=== PATIENT | male | born 1955 | race Caucasian/White ===

== ENCOUNTER 2018-09-18 17:19 | Inpatient (IN) ==
[2018-09-18] MEDS ORDERED: Sodium Chloride 0.9% 1,000 ML PRIMARY IV ONE (17:41)
--- NOTE | 2018-09-18 18:02 | EKG ---
[address] [place] [address] Measurements Intervals [place] Rate: 90 P: 40 DE: 156 QRS: -55 QRSD: 120 T: 97 QT: 400 QTc: 448 Interpretive Statements SINUS RHYTHM INFERIOR MYOCARDIAL INFARCTION [40+ ms Q WAVE AND/OR ST/T ABNORMALITY IN II/aVF], PROBABLY OLD Compared to ECG 09/10/2018 11:25:46 Sinus tachycardia no longer present Left anterior fascicular block no longer present T-wave abnormality no longer present Possible ischemia no longer present Myocardial infarct finding still present Electronically Signed On 09-19-18 08:38:01 MDT by Rex Carroll MD [email or web address]
[2018-09-18 18:08] LABS: BASOPHILS # (AUTO) 0.04 10*3/UL; BASOPHILS % (AUTO) 0.4 % (0-1); EOSINOPHILS # (AUTO) 0.08 10*3/UL; EOSINOPHILS % (AUTO) 0.9 % (0-8); Hemoglobin [HGB] 14.5 g/dL (14.0-18.0); LYMPHOCYTES # (AUTO) 1.96 10*3/uL; MEAN CORPUSCULAR HEMOGLOBIN 30.5 PG (27-31); MEAN CORPUSCULAR HGB CONC 35.4 g/dL (33-37); MEAN CORPUSCULAR VOLUME 86.3 FL (80-90); MEAN PLATELET VOLUME 9.6 FL (7.4-12.2); MONOCYTES # (AUTO) 0.79 10*3/UL (0.3-0.8); MONOCYTES % (AUTO) 8.5 % (5-15); NEUTROPHILS # (AUTO) 6.44 10*3/UL; RED BLOOD COUNT 4.75 10^6/uL (4.70-6.10)
[2018-09-18 18:10] LABS: PLATELET MORPHOLOGY COMMENT NORMAL MORPHOLOGY (NORM); RBC MORPHOLOGY COMMENT NORMAL MORPHOLOGY (NORM); WBC MORPHOLOGY COMMENT NORMAL MORPHOLOGY (NORM)
[2018-09-18 18:22] LABS: BLOOD UREA NITROGEN 18 mg/dL (7-22); BUN/CREATININE RATIO 25.71 (6-20); SERUM ALBUMIN 3.2 g/dL (3.5-4.8)
[2018-09-18] MEDS ORDERED: ONDANSETRON 4 MG/2 ML VIAL IVP ONE (18:37)
[2018-09-18] MEDS ORDERED: fentaNYL Inj 100 MCG/2 ML VIAL IVP ONE (18:37)
--- NOTE | 2018-09-18 20:02 | PDOC ---
General Adult HPI - General Chief Complaint: Abdomen Pain Stated Complaint: abdominal pain Date Seen by Provider: 09/18/18 Time Seen by Provider: 17:25 Source: POSITIVE: Patient Exam Limitations: POSITIVE: No limitations Nurse's Notes Reviewed & Considered: Yes - History of Present Illness Initial Comment: The patient is a 63-year-old male who presents to the emergency department with complaints of continued abdominal pain and "graying out". At the end of July the patient had presented to the emergency department here with anasarca and new ascites. He also had what appeared to be metastatic lesions to the omentum and hypodensities in the liver and the lesion in the left lung. He had been transferred to [facility] for treatment of congestive heart failure and new onset ascites. He did undergo paracentesis which showed no evidence of infection and the cytology was negative. He had been discharged home on multiple medications which the patient had subsequently discontinued because he felt like they were making him sick. He return to the emergency department last week with increasing abdominal pain and distention. His ascites had returned although the edema in his legs was markedly improved. He was transferred back to [facility] after discussion with the surgeon there in the hospitalist with the plan of doing a therapeutic paracentesis and some type of radiology guided biopsy for definitive diagnosis. The patient is a poor historian however it sounds like he may have gotten placed on an involuntary hold possibly for depression or suicidal ideation although this is unclear. It sounds like he did not have a biopsy however he did have another repeat paracentesis. The patient states that he has continued abdominal pain. He states that it is very difficult for him to eat or drink anything because of increased pain when he does. He also starts vomiting if he eats too much. He has subjective chills however denies fever at home. He states that he has been urinating about once a day and his urine is very dark. He states that this afternoon he was looking outside in his vision became very cuenca and the TV noise became very dull and he felt like he was "graying out". He was worried that if he went to sleep that he would not wake back up so his dad brought him here for further evaluation. Have you received a tetanus shot in the past 10 years?: Yes - Patient Home Medications Home Medications: Home Medications Potassium Chloride 10 meq PO BID #20 tab 08/19/18 Atorvastatin Calcium 40 mg PO BEDTIME 09/10/18 Insulin Detemir [Levemir Flextouch] 8 unit SUBCUT BEDTIME 09/10/18 Lisinopril 2.5 mg PO DAILY 09/10/18 Metformin HCl 1,000 mg PO BID 09/10/18 Metoprolol Tartrate 12.5 mg PO DAILY 09/10/18 - Patient Allergies Allergies/Adverse Reactions: Allergies 3 Allergy/AdvReac Type Severity Reaction Status Date / Time No Known Allergies Allergy Verified 09/18/18 17:23 Past Medical History - heen HEENT History: Denies History Cardiovascular History: Hypertension, CHF, Previous MT, Other (please comment) Additional Cardiovasular History: ANASARCA Respiratory History: Denies History Gastrointestinal History: Other (please comment) Additional Gastrointestinal History: ASCITES, CURRENTLY BEING TESTED FOR DIAGNOSIS TO CAUSE OF ASCITES. POSSIBLE METASTATIC DISEASE. Genitourinary History: Denies History Endocrine History: Type 2 Diabetes (oral), Type 2 Diabetes (insulin) Musculoskeletal History: Denies History Prosthesis or Implant: No Neurological History: Denies History Blood Disorders: Denies History Psychiatric History: Denies History History of Sexually Transmitted Diseases: No Cancer History: Other (please comment) In Past Year Been Physically Harmed or Verbally Threatened: No History of MDRO: No History of Other Communicable Diseases: No Tobacco Use: Current Every Day Smoker In the Past 12 Months, Have Used or Abuse Any Substance: None Previous Surgical History: Yes Type / Date of Surgery: HEART CATH Significant Family History: No pertinent family hx Past Medical History Reviewed: Reviewed - No Changes ROS - Limitations ROS Limitations: No Limitations Constitution: REPORTS: Chills. DENIES: Fever Cardiovascular: DENIES: Chest Pain, Heart Palpitations Respiratory: REPORTS: Shortness Of Breath Neurological: REPORTS: Confusion, Weakness. DENIES: Headache Gastrointestinal: REPORTS: Abdominal Pain (Generalized), Nausea, Vomitting. DENIES: Diarrhea, Bloody Stools Endocrine: REPORTS: Fatigue Musculoskeletal: REPORTS: Denies MS Symptoms Eyes: REPORTS: Denies Symptoms ENT: REPORTS: Denies Symptoms Skin: DENIES: Rash General Adult Exam - General Appearance General Appearance: POSITIVE: Alert, Cooperative, No Acute Distress - HEENT HEENT: POSITIVE: Head Inspection Nml, Eyes Inspection Nml, Ears Inspection Nml, Pharynx Inspect. Nml, Dry Mucous Membranes - Neck Neck: POSITIVE: Normal Inspection. NEGATIVE: Lymphadenopathy - Respiratory Respiratory: POSITIVE: No Respiratory Distress, Breath Sounds Normal - Cardiovascular Cardiovascular: POSITIVE: Regular Rate & Rhythm, No Murmur Peripheral Pulses: Dorsalis-pedis (R): 2+, Dorsalis-pedis (L): 2+ - Abdomen Additional Abdominal Details: His abdomen is distended although not quite as distended as it was last week with ascites, he does have generalized abdominal tenderness without guarding or rebound tenderness, he still has a bandage in the right lower abdomen presumably from most recent paracentesis. - Skin Skin: POSITIVE: Normal Color, No Rash - Extremities Extremity: Normal ROM: (All Extremities), Normal Inspection: (All Extremities) - Neurological / Psychological Neurological: POSITIVE: Oriented X3, Motor Normal, Sensation Normal, Other (No focal neurologic deficits the patient's thought processes her sometimes tangential and he seems to lose concentration) General Adult Progress - Results Reviewed by me Xrays/CTs/US Reviewed by me: Yes Discussed with Radiologist: Yes Radiology Findings: CT head shows no acute intracranial abnormality per radiologist. Lab Results Reviewed by Me: Yes Lab Results:: Laboratory Results 3 09/18/18 09/18/18 09/18/18 17:41 18:00 18:00 WBC 9.33 RBC 4.75 Hgb 14.5 Hct 41.0 L MCV 86.3 MCH 30.5 MCHC 35.4 RDW Std Deviation 43.0 RDW Coeff of Yaniv 14.0 Plt Count 391 H MPV 9.6 Immature Gran % (Auto) 0.2 Neut % (Auto) 69.0 Lymph % (Auto) 21.0 [place] % (Auto) 8.5 Eos % (Auto) 0.9 Baso % (Auto) 0.4 Immature Gran # (Auto) 0.02 Neut # (Auto) 6.44 Lymph # (Auto) 1.96 [place] # (Auto) 0.79 Eos # (Auto) 0.08 Baso # (Auto) 0.04 WBC Morphology Comment Normal morphology Plt Morphology Comment Normal morphology RBC Morph Comment Normal morphology PT 10.8 INR 1.05 Sodium Potassium Chloride Carbon Dioxide Anion Gap BUN Creatinine Estimated GFR BUN/Creatinine Ratio Glucose Calculated Osmolality Lactic Acid Calcium Magnesium Total Bilirubin AST ALT Alkaline Phosphatase Lactate Dehydrogenase 1178 H Troponin I C-Reactive Protein NT-Pro-B Natriuret Pep Total Protein Albumin Globulin Albumin/Globulin Ratio Lipase Acetaminophen Serum Alcohol 3 09/18/18 09/18/18 09/18/18 18:00 18:00 18:00 WBC RBC Hgb Hct MCV MCH MCHC RDW Std Deviation RDW Coeff of Yaniv Plt Count MPV Immature Gran % (Auto) Neut % (Auto) Lymph % (Auto) [place] % (Auto) Eos % (Auto) Baso % (Auto) Immature Gran # (Auto) Neut # (Auto) Lymph # (Auto) [place] # (Auto) Eos # (Auto) Baso # (Auto) WBC Morphology Comment Plt Morphology Comment RBC Morph Comment PT INR Sodium 129 L Potassium 4.8 Chloride 99 Carbon Dioxide 22 L Anion Gap 8 BUN 18 Creatinine 0.7 Estimated GFR > 60 BUN/Creatinine Ratio 25.71 H Glucose 176 H Calculated Osmolality 273.0 Lactic Acid 2.8 H Calcium 8.5 L Magnesium 1.6 Total Bilirubin 0.5 AST 49 ALT 51 Alkaline Phosphatase 256 H Lactate Dehydrogenase Troponin I 0.014 C-Reactive Protein 7.7 H NT-Pro-B Natriuret Pep Total Protein 6.1 Albumin 3.2 L Globulin 2.9 Albumin/Globulin Ratio 1.10 L Lipase Acetaminophen 25 Serum Alcohol < 10 3 09/18/18 09/18/18 18:00 18:00 WBC RBC Hgb Hct MCV MCH MCHC RDW Std Deviation RDW Coeff of Yaniv Plt Count MPV Immature Gran % (Auto) Neut % (Auto) Lymph % (Auto) [place] % (Auto) Eos % (Auto) Baso % (Auto) Immature Gran # (Auto) Neut # (Auto) Lymph # (Auto) [place] # (Auto) Eos # (Auto) Baso # (Auto) WBC Morphology Comment Plt Morphology Comment RBC Morph Comment PT INR Sodium Potassium Chloride Carbon Dioxide Anion Gap BUN Creatinine Estimated GFR BUN/Creatinine Ratio Glucose Calculated Osmolality Lactic Acid Calcium Magnesium Total Bilirubin AST ALT Alkaline Phosphatase Lactate Dehydrogenase Troponin I C-Reactive Protein NT-Pro-B Natriuret Pep 6400 H Total Protein Albumin Globulin Albumin/Globulin Ratio Lipase 142 Acetaminophen Serum Alcohol CBC and BMP: 09/18/18 18:00 09/18/18 18:00 EKG Interpreted/Reviewed By Me:: Yes EKG Interpretation:: POSITIVE: Normal Sinus Rhythm, Normal Rate, Normal QRS, Normal ST/T, Other (No acute changes when compared to previous) - Patient's Progress MDM / ED Course: On arrival to the emergency department the patient was hypotensive with a blood pressure in the 70s to 80s systolic. An IV was established and blood cultures and lactate were drawn. His lactate was mildly elevated at 2.5. He did receive a 1 L bolus of normal saline as he appeared to be clinically dehydrated. His blood pressures improved into the 90s systolic. His white count is normal and his CRP is 7.7 which is in the range that it has been for the past couple of weeks. His sodium is low at 129 and this was normal last week. The remainder of his blood work is essentially unremarkable with normal troponin. His BNP is 6000 which is in the range that it has been running. Records were requested from [facility]. Findings were discussed with the patient. The patient will be admitted for further care per Dr. Wagoner. The patient is agreement with this plan. The patient will be given a dose of Rocephin 2 g IV secondary to possible as SBP. - Consult Counseled: POSITIVE: Patient, RE: Lab Results, RE: Radiology Results, RE: DX Patient Care Time - Estimated PCT Patient Care Time (In Minutes): 50 Vital Signs - Recent Vital Signs Vital Signs: Vital Signs (Last 8 hours) Temp Pulse Resp BP Pulse Ox 09/18/18 17:20 96.8 F 94 21 87/70 97 - VS Reviewed Vital Signs Reviewed: Yes Discharge Clinical Impression: Hypotension, Syncope, near, Ascites, Dehydration, Altered mental status, Hyponatremia Abdominal pain Qualifiers: Abdominal location: generalized Qualified Code(s): R10.84 - Generalized abdominal pain Discharge Disposition: Admit to Inpatient Condition: Fair Date Decision to Admit to Inpatient: 09/18/18 Time Decision to Admit to Inpatient: 20:45
--- NOTE | 2018-09-18 20:46 | DI ---
EXAM: CT Head Without Intravenous Contrast CLINICAL HISTORY: ITS.REASON confusion Physician Notes: Tech Comments: TECHNIQUE: Axial computed tomography images of the head/brain without intravenous contrast. COMPARISON: 12/21/06 report. Images not available. FINDINGS: Brain: No evidence for acute intracranial hemorrhage, edema, or mass effect. Patchy white matter hypodensities are present bilaterally, likely related to chronic small vessel ischemia. Age related cortical involutional changes are present. Ventricles: Unremarkable. No ventriculomegaly. Bones/joints: Unremarkable. No acute fracture. Soft tissues: Atherosclerosis. Sinuses: Unremarkable as visualized. No acute sinusitis. Mastoid air cells: Mild right mastoid effusion. IMPRESSION: 1. No acute intracranial findings. Chronic changes are noted as above. 2. Small right mastoid effusion.
[2018-09-18] MEDS ORDERED: cefTRIAXone Inj 2 GM in Sodium Chloride 0.9% 100 ML IV ONE (20:51)
--- NOTE | 2018-09-18 21:33 | PDOC ---
HPI - History of Present Illness Date of Service: 09/18/18 Time of Service: 23:24 Chief Complaint: Abdominal pain History of Present Illness: This very pleasant 63-year-old male who is a somewhat vague historian, but with extremely careful questioning provides a history that he has had abdominal pain which is been persistent, dull, and worsening since a recent paracentesis done in [place]. He states he was not given pain medications at that time, and that he called the clinic but he was told that no pain prescriptions will be given and he should be evaluated in the emergency room. He denied fevers with the abdominal pain but he does complain of chills. He states that he has had some nausea and vomiting this then persistent with this as well. I reviewed the workup done in [place] reveals that he has underlying ascites, no evidence of malignancy by cytology, but he has underlying congestive heart failure as well. Although liver was nodular on CT scan it was normal-appearing on ultrasound. No liver biopsy was done at the time. I'm told apparently a biopsy is planned. The patient cannot give any details of that however. He does state that the pain is diffuse and throughout the entire abdomen. He denies any changes in bowel habits or any blood in stool. He states he's mostly been trying distraction therapy by watching movies and that has not really helped his pain at all. Fentanyl in the emergency room did help him. Examination revealed a positive ascitic fluid wave although his ascites was not at a tense level. He was agreeable to doing a paracentesis for further evaluation. The patient was found to have very depressed ejection fraction at 35%, but further cardiac evaluation was delayed until congestive heart failure was under better control. He has known coronary artery disease but on my review of the record, he's had an attempt at stent placement that failed with a prior myocardial infarction. Past Medical History Medical History: 1. CAD, s/p stent attempt in RCA with non q wave ME and intraaortic balloon pump. 2. poorly controlled DMII. 3. hypercholesterolemia. 4. tobacco abuse. 5. remote history of alcohol abuse. 6. medical noncompliance. 7. Ascites of unclear etiology Surgical History: Outside of recent paracentesis in [place], no surgeries. Pertinent Family History: He states his mother of Alzheimer's dementia. His father side of the family had heart disease. Past Social History: Smokes although cannot quantify how much per day. He states that he quit drinking over a year ago he cannot remember if he drank heavily or markedly. He has a daughter that he is estranged from. He lives alone here in [place]. Tobacco Use: Current Every Day Smoker Do you dip or chew tobacco: No In the Past 12 Months, Have Used or Abuse Any of the Following Substance: None Alcohol Use: None Medication / Allergies Home Medications: Home Medications 3 Medication Instructions Recorded Confirmed Type Potassium Chloride 10 meq PO BID #20 tab 08/19/18 09/18/18 Rx Atorvastatin Calcium 40 mg PO BEDTIME 09/10/18 09/18/18 History Insulin Detemir [Levemir Flextouch] 8 unit SUBCUT BEDTIME 09/10/18 09/18/18 History Lisinopril 2.5 mg PO DAILY 09/10/18 09/18/18 History Metformin HCl 1,000 mg PO BID 09/10/18 09/18/18 History Metoprolol Tartrate 12.5 mg PO DAILY 09/10/18 09/18/18 History Allergies/Adverse Reactions: Allergies 3 Allergy/AdvReac Type Severity Reaction Status Date / Time No Known Allergies Allergy Verified 09/18/18 17:23 Review of Systems - Review of Systems All Systems: Reviewed & No Additional Complaints Except as Stated (I did a 12 point review systems and it was negative other than that stated in history present illness and that noted below.) - Constitutional Constitutional: REPORTS: General Health Poor, Weight Loss (He thinks about 20 pounds as he stated that he weighed about 200-207 pounds), Fever / Chills (No fevers but complains of chills), Weakness - Respiratory Respiratory: REPORTS: Cough - Cardiovascular Cardiovascular: REPORTS: Negative System Review - Gastrointestinal Gastrointestinal / Abdominal: REPORTS: Nausea, Vomiting, Abdominal Pain, See HPI - Genitourinary Genitourinary: REPORTS: Negative System Review - Musculoskeletal Musculoskeletal: REPORTS: Negative System Review - Neurological Neurologic: REPORTS: Memory Loss (Stated that he's noticed some increasing difficulties remembering details lately.), Other (States that he had a diagnosis of MS in the 90s but has not been on any medications for that.) - Psychiatric Psychiatric: REPORTS: Negative System Review Exam - Vitals Vital Signs: Vital Signs Temperature 96.8 F Temperature Source Temporal Artery Scan Pulse Rate [Pulse Oximeter] 94 Respiratory Rate 21 Blood Pressure [Left Arm] 87/70 Pulse Ox 97 Oxygen Delivery Method Room Air Height 5 ft 9 in Weight 250 lb - General General Appearance: No Acute Distress, Cooperative - Head Head Exam: Normocephalic, Atraumatic Additional Head Exam Details: Has temporal wasting bilaterally - Eye Eye Exam: POSITIVE: No Scleral Icterus - ENT ENT Exam: POSITIVE: Mucous Membranes Moist - Neck Neck Exam: Normal Inspection, Full ROM, No Tenderness, No Lymphadenopathy, No Thyromegaly, JVP is not Raised - Respiratory Respiratory Exam: POSITIVE: Clear to Auscultation - Bilaterally, Breathing Non Labored, Normal to Percussion and Palpation - Cardiovascular Cardiovascular Exam: POSITIVE: RRR, No Murmur, No Clicks, No Gallops, No Rubs, No JVD - GI/Abdominal GI/Abdominal Exam: POSITIVE: Normal Bowel Sounds, Non Tender, Soft, Positive for Ascites - Rectal Rectal Exam: POSITIVE: Deferred - External Exam: POSITIVE: Deferred Exam: POSITIVE: Deferred - Extremities Extremities Exam: POSITIVE: No Clubbing Present, No Edema Present, No Cyanosis Present - Back Back Exam: POSITIVE: No CVA Tenderness - Neurological Neurological Exam: POSITIVE: Alert, Oriented x 3, No Facial Droop, Speech Intact / Clear, Moves All Extremities Equally - Psychiatric Psychiatric Exam: POSITIVE: Normal Affect, Normal Mood - Integumentary Integumentary Exam: POSITIVE: Dry - Central Line Examination Central Line Present on Admission: No Results - Labs CBC and BMP: 09/18/18 18:00 09/18/18 18:00 Additional Lab Results: Laboratory Results 09/18/18 09/18/18 09/18/18 Range/Units 18:00 18:00 18:00 WBC 9.33 (4.8-10.8) 10^3/uL RBC 4.75 (4.70-6.10) 10^6/uL Hgb 14.5 (14.0-18.0) g/dL Hct 41.0 L (42.0-52.0) % MCV 86.3 (80-90) FL MCH 30.5 (27-31) PG MCHC 35.4 (33-37) g/dL RDW Std Deviation 43.0 (39-50) fL RDW Coeff of Yaniv 14.0 (11.5-14.5) % Plt Count 391 H (140-350) 10*3/uL MPV 9.6 (7.4-12.2) FL Immature Gran % (Auto) 0.2 (0-5) % Neut % (Auto) 69.0 (50-80) % Lymph % (Auto) 21.0 (10-50) % King % (Auto) 8.5 (5-15) % Eos % (Auto) 0.9 (0-8) % Baso % (Auto) 0.4 (0-1) % Immature Gran # (Auto) 0.02 10*3/UL Neut # (Auto) 6.44 10*3/UL Lymph # (Auto) 1.96 10*3/uL King # (Auto) 0.79 (0.3-0.8) 10*3/UL Eos # (Auto) 0.08 10*3/UL Baso # (Auto) 0.04 10*3/UL WBC Morphology Comment Normal morphology (NORM) Plt Morphology Comment Normal morphology (NORM) RBC Morph Comment Normal morphology (NORM) PT 10.8 (9.7-11.4) secs INR 1.05 (0.00-5.90) N/A Sodium 129 L (135-145) meq/L Potassium 4.8 (3.8-5.2) meq/L Chloride 99 (98-112) meq/L Carbon Dioxide 22 L (23-33) meq/L Anion Gap 8 (5-20) BUN 18 (7-22) mg/dL Creatinine 0.7 (0.70-1.50) mg/dL Estimated GFR > 60 (>60 ml/min/1.73m(2)) BUN/Creatinine Ratio 25.71 H (6-20) Glucose 176 H (78-110) mg/dL Calculated Osmolality 273.0 (267-292) mOsm/kg Lactic Acid (0.70-2.10) MMOL/L Calcium 8.5 L (8.7-10.7) mg/dL Magnesium 1.6 (1.6-2.4) mg/dL Total Bilirubin 0.5 (0.3-1.2) mg/dL AST 49 (21-57) IU/L ALT 51 (21-72) IU/L Alkaline Phosphatase 256 H (38-126) IU/L Troponin I (< 0.040) ng/mL C-Reactive Protein 7.7 H (0.0-0.9) mg/dL NT-Pro-B Natriuret Pep (0-125) PG/ML Total Protein 6.1 (6.1-8.0) g/dL Albumin 3.2 L (3.5-4.8) g/dL Globulin 2.9 (2.50-4.10) g/dL Albumin/Globulin Ratio 1.10 L (1.3-2.0) mg/g Acetaminophen 25 (0-30) ug/mL Serum Alcohol < 10 (0-10) mg/dL 09/18/18 09/18/18 09/18/18 Range/Units 18:00 18:00 18:00 WBC (4.8-10.8) 10^3/uL RBC (4.70-6.10) 10^6/uL Hgb (14.0-18.0) g/dL Hct (42.0-52.0) % MCV (80-90) FL MCH (27-31) PG MCHC (33-37) g/dL RDW Std Deviation (39-50) fL RDW Coeff of Yaniv (11.5-14.5) % Plt Count (140-350) 10*3/uL MPV (7.4-12.2) FL Immature Gran % (Auto) (0-5) % Neut % (Auto) (50-80) % Lymph % (Auto) (10-50) % King % (Auto) (5-15) % Eos % (Auto) (0-8) % Baso % (Auto) (0-1) % Immature Gran # (Auto) 10*3/UL Neut # (Auto) 10*3/UL Lymph # (Auto) 10*3/uL King # (Auto) (0.3-0.8) 10*3/UL Eos # (Auto) 10*3/UL Baso # (Auto) 10*3/UL WBC Morphology Comment (NORM) Plt Morphology Comment (NORM) RBC Morph Comment (NORM) PT (9.7-11.4) secs INR (0.00-5.90) N/A Sodium (135-145) meq/L Potassium (3.8-5.2) meq/L Chloride (98-112) meq/L Carbon Dioxide (23-33) meq/L Anion Gap (5-20) BUN (7-22) mg/dL Creatinine (0.70-1.50) mg/dL Estimated GFR (>60 ml/min/1.73m(2)) BUN/Creatinine Ratio (6-20) Glucose (78-110) mg/dL Calculated Osmolality (267-292) mOsm/kg Lactic Acid 2.8 H (0.70-2.10) MMOL/L Calcium (8.7-10.7) mg/dL Magnesium (1.6-2.4) mg/dL Total Bilirubin (0.3-1.2) mg/dL AST (21-57) IU/L ALT (21-72) IU/L Alkaline Phosphatase (38-126) IU/L Troponin I 0.014 (< 0.040) ng/mL C-Reactive Protein (0.0-0.9) mg/dL NT-Pro-B Natriuret Pep 6400 H (0-125) PG/ML Total Protein (6.1-8.0) g/dL Albumin (3.5-4.8) g/dL Globulin (2.50-4.10) g/dL Albumin/Globulin Ratio (1.3-2.0) mg/g Acetaminophen (0-30) ug/mL Serum Alcohol (0-10) mg/dL - EKG Data -: EKG Interpreted by Me Rate: Normal EKG Shows Normal: Sinus Rhythm - EKG Data EKG Interpretation: Other (flattened T wave inversions in precordial leads) - Imaging Status: Image Reviewed by Me (I don't see any evidence of acute bleed on my review the CT scan of the head.) Assessment and Plan - Patient Problems (1) Spontaneous bacterial peritonitis Current Visit: Yes Status: Acute Code(s): K65.2 - Spontaneous bacterial peritonitis (2) Ascites Current Visit: Yes Status: Acute Code(s): R18.8 - Other ascites (3) Abdominal pain Current Visit: Yes Status: Acute Code(s): R10.9 - Unspecified abdominal pain Qualifiers: Abdominal location: generalized Qualified Code(s): R10.84 - Generalized abdominal pain (4) Chronic systolic heart failure Current Visit: Yes Status: Acute Code(s): I50.22 - Chronic systolic ( congestive) heart failure (5) Poorly controlled type 2 diabetes mellitus Current Visit: Yes Status: Acute Code(s): E11.65 - Type 2 diabetes mellitus with hyperglycemia (6) Tobacco abuse Current Visit: Yes Status: Acute Code(s): Z72.0 - Tobacco use (7) Coronary artery disease Current Visit: No Status: Chronic Code(s): I25.10 - Atherosclerotic heart disease of [place] coronary artery without angina pectoris Qualifiers: Coronary Disease-Associated Artery/Lesion type: [place] artery [place] vs. transplanted heart: [place] heart Associated angina: without angina Qualified Code(s): I25.10 - Atherosclerotic heart disease of [place] coronary artery without angina pectoris - Assessment / Plan Additional Assessment/Plan Details: Admit the patient. Paracentesis, both diagnostic and possibly therapeutic, to make sure that we are doing a workup for spontaneous bacterial peritonitis and also send cells for cytology again. Pain medications Antibiotics as I do think the patient has been examined history that could strongly suggest spontaneous bacterial peritonitis. We need to work through and determine whether or not we should consider doing a liver biopsy and/or some sort of omental biopsy as this patient could very well have malignant ascites. After reviewing the medical records from [place], does not appear that his ascites was necessarily related to portal hypertension. We will repeat the serum ascites to fluid ascites gradient to help determine that. That may help guide some workup. May consider MRI scan as patient has had intermittently develop some memory difficulties. His ammonia recently was normal although ammonia levels do not always correlate with symptoms of hepatic encephalopathy. Check labs in a.m. Full code. I discussed above plan with the patient. He agreed to proceed but he did caution that he really needs things explained to him and to not be told what to do. I told him I would try to do my best to properly consented for any procedure. We did so for paracentesis and that procedure is done separately and uniquely from this visit.
[2018-09-18] MEDS ORDERED: CALCIUM CARBONATE 500 MG (TUMS) CHEWABLE TABLET PO PRN (21:34)
[2018-09-18] MEDS ORDERED: ACETAMINOPHEN 325 MG TABLET PO PRN (21:34)
[2018-09-18] MEDS ORDERED: HYDROmorphone 2 MG/1 ML IVP PRN (21:34)
[2018-09-18] MEDS ORDERED: LIDOCAINE W/ SODIUM BICARB 0.5 ML SYR SUBD PRN (21:34)
[2018-09-18] MEDS ORDERED: ONDANSETRON 4 MG/2 ML VIAL IVP PRN (21:34)
[2018-09-18] MEDS ORDERED: DOCUSATE 100 MG CAPSULE PO PRN (21:34)
[2018-09-18] MEDS ORDERED: LIDOCAINE 2% 20 MG/ML - 20 ML VIAL ONE (22:43)
[2018-09-18] MEDS ORDERED: LIDOCAINE HCL/PF 1% (10 MG/1 ML) - 2 ML AMP ONE (22:43)
[2018-09-18] MEDS ORDERED: LIDOCAINE 2% 20 MG/ML - 20 ML VIAL SUBCUT ONE (23:21)
[2018-09-18] MEDS ORDERED: Albumin Human Soln 25% 50 GM/200 ML IV.SOLN IV ONE (23:32)
--- NOTE | 2018-09-18 23:45 | PROCEDURE1 ---
Procedure - - Date and Time of Service: 09/18/2018, 11:40 PM Procedure Performed: Paracentesis : With Imaging Procedure Note: Procedure performed: Paracentesis Consent was obtained from the patient. Indication for procedure was the following: Indication for procedure: Ascites of undetermined etiology, diffuse abdominal pain, recent paracentesis, question spontaneous bacterial peritonitis and need to rule out out. Description of procedure: The patient was prepped and draped in the usual fashion after ultrasound guidance helped us isolate the largest ascites pocket we could find. In this case it was located at left abdominal flank region. Chlorhexidine was used to cleanse the skin. Lidocaine was used for local anesthesia. A #10 blade was then used perform a small dermatotomy. A 18-gauge needle was inserted with a 60 mL syringe, using a Z-line approach with a 60 mL syringe attached. When withdrawing on the 60 mL syringe, peritoneal fluid was noted and 60 mL was drawn and collected for lab. I tried to use a catheter for drainage but the catheter continually kinked and did not work. I used the 18-gauge needle attached to drainage hose tubing and placed on Vacutainer bottles. A total of 2850 mL of fluid was removed. I had also sent down fluid and a red top, green top, and purple top further laboratory analysis. The fluid appeared yellow and cloudy on my view. A total of 2850 mL was withdrawn via Vacutainer bottles. The needle was then withdrawn. I watched frequently reassessed with ultrasound. There was no evidence of any damage to the bowel or surrounding structures. Hemostasis was achieved. The insertion site was dressed with gauze and Tegaderm, with no evidence of peritoneal leak or blood loss. Anesthesia: Local with lidocaine. Estimated blood loss: None Disposition: Patient is admitted to the hospital in serious condition. Complications: None apparent at time of procedure.
[2018-09-18] MEDS ORDERED: Magnesium Sulfate 2gm (Premix) 2 GM/50 ML BAG IV ONE (23:46)
[2018-09-18] MEDS ORDERED: Glucagon Inj Vial 1 MG/ML VIAL IM PRN (23:47)
[2018-09-18] MEDS ORDERED: DEXTROSE 31 GM GEL PO PRN (23:47)
[2018-09-18] MEDS ORDERED: DEXTROSE 50%-WATER SYRINGE 50 ML SYRINGE IVP PRN (23:47)
[2018-09-18] MEDS ORDERED: Insulin Sliding Scale Protocol SUBCUT PRN (23:47)
[2018-09-18 23:59] LABS: WBC, BODY FLUID 1.299 10*3/uL
[2018-09-19 04:34] LABS: BASOPHILS # (AUTO) 0.05 10*3/UL; BASOPHILS % (AUTO) 0.6 % (0-1); EOSINOPHILS # (AUTO) 0.11 10*3/UL; EOSINOPHILS % (AUTO) 1.4 % (0-8); Hematocrit [HCT] 38.3 % (42.0-52.0); Hemoglobin [HGB] 12.8 g/dL (14.0-18.0); LYMPHOCYTES # (AUTO) 1.28 10*3/uL; MEAN CORPUSCULAR HGB CONC 33.4 g/dL (33-37); MEAN CORPUSCULAR VOLUME 86.7 FL (80-90); MEAN PLATELET VOLUME 9.9 FL (7.4-12.2); MONOCYTES # (AUTO) 0.75 10*3/UL (0.3-0.8); MONOCYTES % (AUTO) 9.7 % (5-15); NEUTROPHILS # (AUTO) 5.55 10*3/UL; NEUTROPHILS % (AUTO) 71.7 % (50-80); RED BLOOD COUNT 4.42 10^6/uL (4.70-6.10)
[2018-09-19 04:37] LABS: PLATELET MORPHOLOGY COMMENT NORMAL MORPHOLOGY (NORM); RBC MORPHOLOGY COMMENT NORMAL MORPHOLOGY (NORM); WBC MORPHOLOGY COMMENT NORMAL MORPHOLOGY (NORM)
[2018-09-19 05:02] LABS: BLOOD UREA NITROGEN 19 mg/dL (7-22); BUN/CREATININE RATIO 31.66 (6-20); SERUM ALBUMIN 3.2 g/dL (3.5-4.8)
[2018-09-19] MEDS: Insulin Lispro Flexpen 300 UNIT/3 ML INSULN.PEN SUBCUT SCH ×4 (07:41→20:57)
[2018-09-19] MEDS: Metoprolol TARTRATE Tab 25 MG TAB PO SCH (08:52)
[2018-09-19] MEDS: oxyCODONE IR Tab 5 MG TAB PO PRN ×3 (08:54→23:28)
[2018-09-19] MEDS ORDERED: LISINOPRIL 5 MG TABLET PO SCH (09:00)
--- NOTE | 2018-09-19 10:25 | DI ---
CT Chest WO Contrast 09/19/2018 8:00 AM History: [facility] [place] DI ^lung nodule, smoker ^Y Comparison: CTA chest 05/11/2009. CT abdomen/pelvis 09/10/2018. Technique: Noncontrast CT images through the chest were obtained for review in the axial, sagittal, and coronal planes. Findings: Evaluation of the lungs demonstrates tiny bilateral pleural effusions and bibasilar atelect asis. Rounded masslike density is noted in the anterior aspect of the lingula, the imaged portion not significantly changed from the recent CT abdomen/pelvis. A 4 mm pulmonary nodule is noted in the rig ht upper lobe on series 2 image 26. A 5 mm subpleural nodule is noted in the right middle lobe on ser ies 2 image 66. Calcified granulomata are noted in the left lower lobe. The airways are patent with no endobronchial lesion. There are shotty mediastinal lymph nodes, not pa thologically enlarged by CT size criteria. The aorta demonstrates normal course and caliber. The main pulmonary artery is dilated at 3.2 cm. There are atheromatous aortic and coronary artery calcificati ons. Aortic annular calcifications are also noted. Heart size is enlarged with no pericardial effusio n. The thyroid exhibits normal CT morphology. Osseous structures are unremarkable for age. The visualized upper abdominal structures are notable for a shrunken nodular appearance of the liver, most commonly associated with cirrhosis although diffuse metastatic disease can have a similar appea keyon. High attenuation material is noted in the gallbladder neck. The gallbladder is incompletely ca ptured on this exam. There is moderate diffuse ascites. Innumerable nodularities are present in the o mentum, concerning for omental caking. Impression: 1. There are tiny bilateral pleural effusions and bibasilar atelectasis. Lung volumes are low and the re is rounded masslike density in the anterior aspect of the lingula. This is favored to represent ro und atelectasis, although other etiologies are not excluded. There are also right upper and middle lo be nodules. Short-term followup is recommended in order to ensure stability/resolution. 2. There is cardiomegaly without pericardial effusion. 3. The main pulmonary artery is dilated at 3.2 cm, a finding associated with pulmonary artery hyperte nsion. 4. The appearance of the liver and omentum is similar to recent imaging. Differential considerations are unchanged.
--- NOTE | 2018-09-19 13:27 | PDOC(PROG) ---
Date of Service: 09/19/18 Time of Service: 13:25 Interval History: No complaints of chest pain, shortness breath, nausea or vomiting. Abdominal pain is much better with pain medications and post catheter yesterday. Labs reviewed and polymorphonuclear cells were PMNs, where 290 which is consistent with spontaneous bacterial peritonitis. I spoke with radiology regarding omental caking and there is nothing to biopsy and if omentum was going to be biopsied it was suggested this would need to be done at another facility. Objective : Data - Labs CBC and BMP: 09/19/18 04:10 09/19/18 04:10 Additional Lab Results: 09/18/18 09/19/18 09/19/18 23:05 04:10 04:10 Total Protein 5.9 L Albumin 3.2 L Globulin 2.7 Albumin/Globulin Ratio 1.10 L PSA Screen 0.839 TSH 0.991 Free T4 1.22 Fluid WBC 1.299 Fluid RBC 0.003 Fluid Polynuclear WBCs 22.4 Fluid Mononuclear WBCs 77.6 Peritoneal Color Yellow Peritoneal Appearance Slightly cloudy Peritoneal Volume 2700 Objective : Exam - General General Appearance: No Acute Distress, Cooperative Additional General Exam Details: Vital Signs - Last Taken Temperature 97.4 F 09/19/18 11:18 Pulse Rate 90 09/19/18 11:18 Respiratory Rate 18 09/19/18 11:18 Blood Pressure 113/80 09/19/18 11:18 Pulse Ox 95 09/19/18 11:18 - Eye Eye Exam: No Scleral Icterus - ENT ENT Exam: Mucous Membranes Moist - Respiratory Respiratory Exam: Clear to Auscultation - Bilaterally, Breathing Non Labored - Cardiovascular Cardiovascular Exam: RRR, No Murmur, No Clicks, No Gallops, No Rubs, No JVD - GI/Abdominal GI/Abdominal Exam: Normal Bowel Sounds, Non Tender, Non Distended, Soft Additional GI/Abdominal Exam Details: Insertion site for paracentesis yesterday looks clean and dry - Extremities Extremities Exam: No Clubbing Present, No Edema Present, No Cyanosis Present - Neurological Neurological Exam: Alert, Oriented x 3, No Facial Droop, Speech Intact / Clear, Moves All Extremities Equally Assessment and Plan - Patient Problems (1) Spontaneous bacterial peritonitis Current Visit: Yes Status: Acute Code(s): K65.2 - Spontaneous bacterial peritonitis (2) Ascites Current Visit: Yes Status: Acute Comment: I suspect this is malignant in nature. We are still waiting for the albumin concentration in the peritoneal fluid to do the SA AG calculations. Code(s): R18.8 - Other ascites Qualifiers: Ascites type: malignant Qualified Code(s): R18.0 - Malignant ascites (3) Abdominal pain Current Visit: Yes Status: Resolved Code(s): R10.9 - Unspecified abdominal pain Qualifiers: Abdominal location: generalized Qualified Code(s): R10.84 - Generalized abdominal pain (4) Chronic systolic heart failure Current Visit: Yes Status: Acute Code(s): I50.22 - Chronic systolic ( congestive) heart failure (5) Poorly controlled type 2 diabetes mellitus Current Visit: Yes Status: Acute Code(s): E11.65 - Type 2 diabetes mellitus with hyperglycemia (6) Tobacco abuse Current Visit: Yes Status: Acute Code(s): Z72.0 - Tobacco use (7) Coronary artery disease Current Visit: No Status: Chronic Code(s): I25.10 - Atherosclerotic heart disease of [place] coronary artery without angina pectoris Qualifiers: Coronary Disease-Associated Artery/Lesion type: [place] artery [place] vs. transplanted heart: [place] heart Associated angina: without angina Qualified Code(s): I25.10 - Atherosclerotic heart disease of [place] coronary artery without angina pectoris - Assessment / Plan Additional Assessment/Plan Details: I'm going to go ahead and continue Rocephin IV given the spontaneous bacterial peritonitis by definition Post-paracentesis we gave the patient albumin. I may repeat a dose tomorrow. We'll extend Rocephin therapy to 7 days and then we'll likely place on either Bactrim or ciprofloxacin empirically daily. He may benefit from a colonoscopy to screen for colon cancer given what appears to be metastatic findings on prior CT scans. No evidence for prostate cancer and reassuring to see a normal PSA. I will go ahead and get a brain MRI scan as patient has had significant cognitive issues. Because of his diabetes I will not use contrast. If all goes well, try to arrange outpatient antibiotics tomorrow but I'd like to see how the patient clinically does the next 24 hours or so. We can probably even schedule a colonoscopy evaluation sometime next week when he is off of antibiotics for the SBP. The patient tells me he has not going to follow up in [place]. He is very adamant this.
--- NOTE | 2018-09-19 16:36 | DI ---
MRI Brain WO Contrast 09/19/2018 1:30 PM History: [facility] [place] DI ^confusion, possible metastatic disease ^diabetic so no contrast Comparison: CT head 09/18/2018. Procedure: Routine noncontrast multiecho multiplanar MR imaging of the brain was performed. Findings: There is no evidence of acute or chronic hemorrhage. No extra-axial fluid collections are p resent. There is no focal mass or mass-effect, although evaluation is limited in the absence of intra venous contrast. The ventricles and cisterns are mildly enlarged, consistent with age related atrophy . The sella is mildly dilated with mild flattening of the pituitary. There is otherwise normal anatom ic appearance of the midline structures. Scattered T2/FLAIR hyperintensities are present within the s ubcortical and periventricular white matter. There is no diffusion restriction. The cerebral vascula ture is grossly normal in appearance. The orbits and paranasal sinuses are unremarkable. There is a m oderate-sized right mastoid effusion. Impression: 1. No MR evidence of acute intracranial pathology within the limits of this noncontrast exam. 2. Scattered T2/FLAIR hyperintensities are present within the subcortical and periventricular white m atter, a nonspecific finding that is most commonly seen in the setting of chronic small vessel ischem ia in this age group. Clinical correlation is recommended. 3. Age related senescent changes. 4. Moderate sized right mastoid effusion.
[2018-09-19] MEDS: cefTRIAXone Inj 2 GM in Sodium Chloride 0.9% 100 ML IV SCH (20:52)
[2018-09-20 01:12] VITALS: TEMP 97.4
[2018-09-20] MEDS: oxyCODONE IR Tab 5 MG TAB PO PRN ×2 (04:55→13:07)
[2018-09-20 05:32] LABS: BASOPHILS # (AUTO) 0.06 10*3/UL; BASOPHILS % (AUTO) 0.7 % (0-1); EOSINOPHILS # (AUTO) 0.14 10*3/UL; EOSINOPHILS % (AUTO) 1.6 % (0-8); Hematocrit [HCT] 42.8 % (42.0-52.0); Hemoglobin [HGB] 14.4 g/dL (14.0-18.0); LYMPHOCYTES # (AUTO) 1.59 10*3/uL; MEAN CORPUSCULAR HEMOGLOBIN 29.3 PG (27-31); MEAN CORPUSCULAR HGB CONC 33.6 g/dL (33-37); MEAN PLATELET VOLUME 9.8 FL (7.4-12.2); MONOCYTES # (AUTO) 0.84 10*3/UL (0.3-0.8); MONOCYTES % (AUTO) 9.5 % (5-15); NEUTROPHILS # (AUTO) 6.16 10*3/UL; NEUTROPHILS % (AUTO) 69.9 % (50-80); RED BLOOD COUNT 4.92 10^6/uL (4.70-6.10)
[2018-09-20 05:44] LABS: PLATELET MORPHOLOGY COMMENT NORMAL MORPHOLOGY (NORM); RBC MORPHOLOGY COMMENT NORMAL MORPHOLOGY (NORM); WBC MORPHOLOGY COMMENT NORMAL MORPHOLOGY (NORM)
[2018-09-20 05:49] LABS: BLOOD UREA NITROGEN 12 mg/dL (7-22); SERUM ALBUMIN 3.1 g/dL (3.5-4.8)
[2018-09-20 08:05] VITALS: BP 121/79; RESP 20; O2SAT 93
[2018-09-20] MEDS: Insulin Lispro Flexpen 300 UNIT/3 ML INSULN.PEN SUBCUT SCH ×2 (08:31→13:28)
[2018-09-20] MEDS: Metoprolol TARTRATE Tab 25 MG TAB PO SCH (09:41)
[2018-09-20 10:59] LABS: HEP B CORE IGM ANTIBODY Negative (Negative); HEPATITIS B SURFACE AG Negative (Negative)
[2018-09-20] MEDS: cefTRIAXone Inj 2 GM in Sodium Chloride 0.9% 100 ML IV SCH (13:01)
--- NOTE | 2018-09-20 13:26 | DCSUMMARY ---
Hospitalization Summary Admit Date: 09/18/2018 Discharge Date: 09/20/18 Primary Diagnosis:: spontaneous bacterial peritonitis Hospital Course: This is a very cantankerous 63-year-old male, somewhat disgruntled with medical care in general, and noncompliant, who came in with increasing abdominal pain on 09/18/2018. The patient had had 2 prior workups for ascites of unclear etiology in [place], where was determined that liver enzymes and INRs were not consistent with cirrhosis, but imaging was. Workup on the ascites fluid in [place] on my review of the medical records that we were able to obtain shows that the serum ascites albumin gradient is consistent with portal hypertension. The patient states that he's had a lot of memory problems and he cannot really quantify his drinking, but on the day of discharge I was able to speak with the patient's father and the patient drinks significant amounts of alcohol and is often noted to be down near [employer] grocery buying alcohol. Imaging has also been consistent with possible low-grade masses in the liver although that can be seen with cirrhosis and also some omental caking. Extensive workup shows possible atelectasis versus a suspicious area in the lingula of the left lobe but no other evidence of masses that would be amenable to biopsy. In terms of potential cancer workup, I spoke with interventional radiology in [place]. It was suggested that there is really no mass to go after an biopsy and perhaps a laparoscopic peritoneal biopsy may be appropriate as cytology is been negative for malignancy on 2 separate occasions. We have arranged the patient to see Dr. Rodriguez on an outpatient basis. I believe the patient may been set up with Dr. Annette Lnig, but the patient refuses to go back there. Terms of his abdominal pain workup here, we found is that he had spontaneous bacterial peritonitis with over 250 PMNs. We were not able to isolate an organism on culture. Post paracentesis, the patient reported to me that his pain had resolved and his abdomen. He was treated with Rocephin here for 3 days and then we made the determination that the best thing to do would be to stop IV antibiotics at that point and place the patient on ciprofloxacin to prophylax against further episodes of spontaneous bacterial peritonitis. I strongly admonished the patient with his father present, to quit drinking alcohol and to quit smoking as this could further deteriorate what appears to be cirrhosis. Pending currently, we have a viral hepatitis panel. In addition the serum albumin ascites gradient is dependent on the peritoneal albumin level to calculate further. I did note, on review of the records in [place], that this is consistent with portal hypertension. Imaging here also included a brain MRI scan. I could not do contrast as the patient has uncontrolled diabetes and the patient is noncompliant with medical regimen. That scan was consistent with microvascular small vessel ischemic disease. A CT scan of the chest was done which showed possible lingular atelectasis with recommendation for reimaging down the road as clinically warranted. On the date of discharge, the patient became very belligerent with the nursing staff, demanding to be discharged. He nearly walked out AGAINST MEDICAL ADVICE. After harsh discussion with the patient, I was able to convince him to at least stay for his IV antibiotic and devise a plan regarding 3 components of his situation: 1. In terms of the ascites, it is most likely related to cirrhosis. I think the patient would benefit from Lasix and spironolactone for fluid management of this cirrhosis related ascites. Accumulated history to the hospital stay strongly suggests that this ascites is the result of alcoholic cirrhosis. He is reluctant to take Lasix as he was prescribed that and [place], but this was in the setting of presumed ascites from systolic congestive heart failure. He was not on spironolactone at that time. 2. In order to prove whether or not there could be cancer with omental caking, the patient may benefit from a laparoscopic peritoneal biopsy. He might even benefit from a colonoscopy. These would all be efforts to screen for potential cancer. We have arranged the patient to see a surgeon here in town as he does not want to go back to [place]. He might also benefit from screening endoscopy in case of the GI tract cancer. 3. In terms of the spontaneous bacterial peritonitis, we will finish Rocephin today, and then place the patient on ciprofloxacin, 500 mg daily for prophylaxis indefinitely. He is extremely high risk to develop spontaneous bacterial peritonitis again. In terms of other medical conditions, I felt that with his systolic heart failure and ejection fraction 35% we should go ahead and just stop metformin. We can continue with Levemir for diabetes management. It is unlikely the patient will remain compliant with this plan as he's not been on any diabetes medications now for several years despite advice of his physicians. Due to his liver disease, I am going to stop the statin medication. The patient looks very forward to going home and getting out of the hospital. He has no desire to be year. He has no complaints chest pain or shortness of breath. He states his abdominal pain is present still. However he is told me throughout the hospital stay that it is significantly improved from admission. Assessment and Plan: 1. As per discharge assessments noted 2. Disposition: Patient is discharged home. 3. Condition on discharge, stable and improved. Overall, he continues to drink alcohol I think she'll of cirrhosis. 4. Diet: regular diet 5. Activities: resume normal activities, but advised to quit drinking and quit smoking. 6. Follow-Up: 1. Dr. Youssef one week 2. Dr. Dr. Rodriguez one week 7. Medications at the Time of Discharge: Home Medications 3 Medication Instructions Recorded Confirmed Type Ciprofloxacin HCl [Cipro] 500 mg PO DAILY #30 tab 09/20/18 Rx Furosemide [Lasix] 20 mg PO DAILY #30 tab 09/20/18 Rx Insulin Detemir [Levemir Flextouch] 8 unit SUBCUT BEDTIME #1 insuln.pen Rx Spironolactone 50 mg PO DAILY #30 tab 09/20/18 Rx 8. Time, care, counseling and coordination of care for this discharge is greater than 30 minutes. Exam - Vitals Vital Signs: Vital Signs Temperature 97.4 F Temperature Source Temporal Artery Scan Pulse Rate [Pulse Oximeter] 95 Pulse Rate 88 Respiratory Rate 20 Blood Pressure [Right Arm] 121/79 Blood Pressure [Left Arm] 130/74 Blood Pressure 96/75 Pulse Ox 93 Oxygen Flow Rate 1 Oxygen Delivery Method Nasal Cannula Height 5 ft 9 in Weight 181 lb 6.4 oz - General General Appearance: No Acute Distress Additional General Exam Details: Disgruntled and belligerent, but after amarilis, difficult discussion, patient was able to de-escalate and was cooperative from that point. - Eye Eye Exam: POSITIVE: No Scleral Icterus - ENT ENT Exam: POSITIVE: Mucous Membranes Moist - Respiratory Respiratory Exam: POSITIVE: Clear to Auscultation - Bilaterally, Breathing Non Labored - Cardiovascular Cardiovascular Exam: POSITIVE: RRR, No Murmur, No Clicks, No Gallops, No Rubs, No JVD - GI/Abdominal GI/Abdominal Exam: POSITIVE: Normal Bowel Sounds, Non Tender, Non Distended, Soft - Extremities Extremities Exam: POSITIVE: No Edema Present, No Cyanosis Present, Clubbing Present - Neurological Neurological Exam: POSITIVE: Alert, Oriented x 3, No Facial Droop, Speech Intact / Clear, Moves All Extremities Equally - Psychiatric Psychiatric Exam: POSITIVE: Anxious, Agitated Data Peritnent Studies: 09/18/18 09/18/18 09/18/18 17:41 18:00 18:00 Sodium Potassium Chloride Carbon Dioxide Anion Gap BUN Estimated GFR Glucose Calculated Osmolality Calcium Total Bilirubin AST ALT Alkaline Phosphatase NT-Pro-B Natriuret Pep 6400 H Total Protein Albumin Globulin Albumin/Globulin Ratio Lipase PSA Screen TSH Free T4 Fluid WBC Fluid RBC Fluid Polynuclear WBCs Fluid Mononuclear WBCs Fluid LDH 876 Peritoneal Color Peritoneal Appearance Peritoneal Volume Acetaminophen 25 Serum Alcohol < 10 09/18/18 09/18/18 09/19/18 18:00 23:05 04:10 Sodium Potassium Chloride Carbon Dioxide Anion Gap BUN Estimated GFR Glucose Calculated Osmolality Calcium Total Bilirubin AST ALT Alkaline Phosphatase NT-Pro-B Natriuret Pep Total Protein Albumin Globulin Albumin/Globulin Ratio Lipase 142 PSA Screen 0.839 TSH 0.991 Free T4 1.22 Fluid WBC 1.299 Fluid RBC 0.003 Fluid Polynuclear WBCs 22.4 Fluid Mononuclear WBCs 77.6 Fluid LDH Peritoneal Color Yellow Peritoneal Appearance Slightly cloudy Peritoneal Volume 2700 Acetaminophen Serum Alcohol 09/20/18 04:55 Sodium 131 L Potassium 4.2 Chloride 97 L Carbon Dioxide 26 Anion Gap 8 BUN 12 Estimated GFR > 60 Glucose 158 H Calculated Osmolality 274.0 Calcium 8.1 L Total Bilirubin 0.3 AST 54 ALT 52 Alkaline Phosphatase 230 H NT-Pro-B Natriuret Pep Total Protein 5.9 L Albumin 3.1 L Globulin 2.8 Albumin/Globulin Ratio 1.10 L Lipase PSA Screen TSH Free T4 Fluid WBC Fluid RBC Fluid Polynuclear WBCs Fluid Mononuclear WBCs Fluid LDH Peritoneal Color Peritoneal Appearance Peritoneal Volume Acetaminophen Serum Alcohol Procedures: Paracentesis, see my note regarding the procedure. Multiple imaging studies. [address] [place] [address] PH: DD: [phone] FAX: [phone] ~DIAGNOSTIC IMAGING REPORT~ Patient: Malcolm Tong : 1955 Sex: M Age: 63 Exam Name: MRI Brain WO Contrast Exam Date: 09/19/18 Report # : [id number] CPT Code: 35110 EMR/MR #: [id number] Ordering: DIAMANTE CHAPARRO Admiting: DIAMANTE CHAPARRO DO Primary: NONE,NONE Attending: DIAMANTE CHAPARRO DO Signed MRI Brain WO Contrast 09/19/2018 1:30 PM History: [facility] [place] [facility] ^confusion, possible metastatic disease ^diabetic so no contrast Comparison: CT head 09/18/2018. Procedure: Routine noncontrast multiecho multiplanar MR imaging of the brain was performed. Findings: There is no evidence of acute or chronic hemorrhage. No extra-axial fluid collections are present. There is no focal mass or mass-effect, although evaluation is limited in the absence of intravenous contrast. The ventricles and cisterns are mildly enlarged, consistent with age related atrophy. The sella is mildly dilated with mild flattening of the pituitary. There is otherwise normal anatomic appearance of the midline structures. Scattered T2/ FLAIR hyperintensities are present within the subcortical and periventricular white matter. There is no diffusion restriction. The cerebral vasculature is grossly normal in appearance. The orbits and paranasal sinuses are unremarkable. There is a moderate-sized right mastoid effusion. Impression: 1. No MR evidence of acute intracranial pathology within the limits of this noncontrast exam. 2. Scattered T2/FLAIR hyperintensities are present within the subcortical and periventricular white matter, a nonspecific finding that is most commonly seen in the setting of chronic small vessel ischemia in this age group. Clinical correlation is recommended. 3. Age related senescent changes. 4. Moderate sized right mastoid effusion. Dictated By: 09/19/18 1626 PIPE GONZALEZ MD. Signed By: 09/19/18 1636 PIPE GONZALEZ MD. [address] [facility] [place] [address] PH: DD: [phone] FAX: [phone] ~DIAGNOSTIC IMAGING REPORT~ Patient: Malcolm Tong : 1955 Sex: M Age: 63 Exam Name: CT Chest WO Contrast Exam Date: 09/19/18 Report # : [id number] CPT Code: 33146 EMR/MR #: [id number] Ordering: DIAMANTE CHAPARRO Admiting: DIAMANTE CHAPARRO DO Primary: NONE,NONE Attending: DIAMANTE CHAPARRO DO Signed CT Chest WO Contrast 09/19/2018 8:00 AM History: [facility] [place] [facility] ^lung nodule, smoker ^Y Comparison: CTA chest 05/11/2009. CT abdomen/pelvis 09/10/2018. Technique: Noncontrast CT images through the chest were obtained for review in the axial, sagittal, and coronal planes. Findings: Evaluation of the lungs demonstrates tiny bilateral pleural effusions and bibasilar atelectasis. Rounded masslike density is noted in the anterior aspect of the lingula, the imaged portion not significantly changed from the recent CT abdomen/pelvis. A 4 mm pulmonary nodule is noted in the right upper lobe on series 2 image 26. A 5 mm subpleural nodule is noted in the right middle lobe on series 2 image 66. Calcified granulomata are noted in the left lower lobe. The airways are patent with no endobronchial lesion. There are shotty mediastinal lymph nodes, not pathologically enlarged by CT size criteria. The aorta demonstrates normal course and caliber. The main pulmonary artery is dilated at 3.2 cm. There are atheromatous aortic and coronary artery calcifications. Aortic annular calcifications are also noted. Heart size is enlarged with no pericardial effusion. The thyroid exhibits normal CT morphology. Osseous structures are unremarkable for age. The visualized upper abdominal structures are notable for a shrunken nodular appearance of the liver, most commonly associated with cirrhosis although diffuse metastatic disease can have a similar appearance. High attenuation material is noted in the gallbladder neck. The gallbladder is incompletely captured on this exam. There is moderate diffuse ascites. Innumerable nodularities are present in the omentum, concerning for omental caking. Impression: 1. There are tiny bilateral pleural effusions and bibasilar atelectasis. Lung volumes are low and there is rounded masslike density in the anterior aspect of the lingula. This is favored to represent round atelectasis, although other etiologies are not excluded. There are also right upper and middle lobe nodules. Short-term followup is recommended in order to ensure stability/ resolution. 2. There is cardiomegaly without pericardial effusion. 3. The main pulmonary artery is dilated at 3.2 cm, a finding associated with pulmonary artery hypertension. 4. The appearance of the liver and omentum is similar to recent imaging. Differential considerations are unchanged. Dictated By: 09/19/18 100 PIPE GONZALEZ MD. Signed By: [address] [facility] [place] [address] PH: DD: [phone] FAX: [phone] ~DIAGNOSTIC IMAGING REPORT~ Patient: Malcolm Tong : 1955 Sex: M Age: 63 Exam Name: CT Head WO Contrast Exam Date: 09/18/18 Report # : [id number] CPT Code: 87760 EMR/MR #: [id number] Ordering: GELY CRANDALL Admiting: Primary: NONE,NONE Attending: Signed EXAM: CT Head Without Intravenous Contrast CLINICAL HISTORY: ITS.REASON confusion Physician Notes: Tech Comments: TECHNIQUE: Axial computed tomography images of the head/brain without intravenous contrast. COMPARISON: 12/21/06 report. Images not available. FINDINGS: Brain: No evidence for acute intracranial hemorrhage, edema, or mass effect. Patchy white matter hypodensities are present bilaterally, likely related to chronic small vessel ischemia. Age related cortical involutional changes are present. Ventricles: Unremarkable. No ventriculomegaly. Bones/joints: Unremarkable. No acute fracture. Soft tissues: Atherosclerosis. Sinuses: Unremarkable as visualized. No acute sinusitis. Mastoid air cells: Mild right mastoid effusion. IMPRESSION: 1. No acute intracranial findings. Chronic changes are noted as above. 2. Small right mastoid effusion. Dictated By: Ortega Louise MD. Signed By: 09/18/182045 Ortega Louise MD. Patient Problems - Patient Problem List (1) Spontaneous bacterial peritonitis Current Visit: Yes Status: Acute Code(s): K65.2 - Spontaneous bacterial peritonitis Category: Medical (2) Ascites Current Visit: Yes Status: Acute Code(s): R18.8 - Other ascites Qualifiers: Ascites type: due to alcoholic cirrhosis Qualified Code(s): K70.31 - Alcoholic cirrhosis of liver with ascites Category: Medical (3) Abdominal pain Current Visit: Yes Status: Resolved Code(s): R10.9 - Unspecified abdominal pain Qualifiers: Abdominal location: generalized Qualified Code(s): R10.84 - Generalized abdominal pain Category: Medical (4) Chronic systolic heart failure Current Visit: Yes Status: Acute Code(s): I50.22 - Chronic systolic ( congestive) heart failure Category: Medical (5) Poorly controlled type 2 diabetes mellitus Current Visit: Yes Status: Acute Code(s): E11.65 - Type 2 diabetes mellitus with hyperglycemia Category: Medical (6) Tobacco abuse Current Visit: Yes Status: Acute Code(s): Z72.0 - Tobacco use Category: Medical (7) Coronary artery disease Current Visit: No Status: Chronic Code(s): I25.10 - Atherosclerotic heart disease of [place] coronary artery without angina pectoris Qualifiers: Coronary Disease-Associated Artery/Lesion type: [place] artery [place] vs. transplanted heart: [place] heart Associated angina: without angina Qualified Code(s): I25.10 - Atherosclerotic heart disease of [place] coronary artery without angina pectoris Category: Medical (8) Medical non-compliance Current Visit: Yes Status: Acute Code(s): Z91.19 - Patient's noncompliance with other medical treatment and regimen Category: Medical
[2018-09-20 13:56] LABS: HEPATITIS A IGM Negative (Negative)
[2018-09-21 22:49] LABS: SOURCE, BODY FLUID ALBUMIN PERITONEAL
[2018-09-24 21:58] LABS: QUANTIFERON-TB GOLD RESULT NEGATIVE
== END 2018-09-20 14:00 | disposition home or self-care (01) | DRG 372 ==
LOC: ER 17:19 → MED/SURG 21:21
PROVIDERS: ADMIT Family Medicine; ATTEND Family Medicine

== ENCOUNTER 2018-10-22 16:23 | Inpatient (IN) ==
[2018-10-22] MEDS ORDERED: Sodium Chloride 0.9% 1,000 ML PRIMARY IV ONE (16:50)
[2018-10-22] MEDS ORDERED: ONDANSETRON 4 MG/2 ML VIAL IVP ONE ×4 (16:50→21:00)
[2018-10-22] MEDS ORDERED: ONDANSETRON 4 MG/2 ML VIAL ONE (16:57)
[2018-10-22] MEDS ORDERED: MORPHINE SULFATE 4 MG/1 ML IVP ONE ×2 (17:02→20:47)
--- NOTE | 2018-10-22 17:04 | PDOC ---
GI Bleed/Rectal Complaint HPI - General Chief Complaint: GI Bleed / Rectal Pain Stated Complaint: DARK TARRY EMESIS/JAUNDICE Date Seen by Provider: 10/22/18 Time Seen by Provider: 16:54 Source: POSITIVE: Patient Exam Limitations: POSITIVE: Clinical condition Nurse's Notes Reviewed & Considered: Yes - History of Present Illness Initial Comments: This is a well-developed, thin, 63-year-old male, who was brought in by EMS for weakness, vomiting, and black tarry stools. Patient has history of colon cancer in comes in today with hematemesis, black tarry stools, jaundice, abdominal pain. Patient is cold to the touch and has scleral icterus. Review of systems is unavailable because of the patient's decreased communicativeness. He states it is hard for him to talk. Body Location Affected: REPORTS: Abdomen Timing: REPORTS: Unknown Duration: Unknown Severity: Severe Quality: REPORTS: "Pain" Context: REPORTS: Other (Colon cancer) Associated Symptoms: REPORTS: Tarry Stools, Diffuse, Blood Similar Symptoms Previously: Yes Recent Care Received: REPORTS: Denies Any Prior Injuries Related to Current Complaint?: No - Patient Home Medications Home Medications: Home Medications Furosemide [Lasix] 20 mg PO DAILY #30 tab 09/20/18 Insulin Detemir [Levemir Flextouch] 8 unit SUBCUT BEDTIME #1 insuln.pen Spironolactone 50 mg PO DAILY #30 tab 09/20/18 Pantoprazole Sodium [Protonix] 40 mg PO DAILY #60 tablet.dr 09/30/18 amoxicillin 500 mg tablet 1,000 mg PO BID #28 tab 10/01/18 clarithromycin 500 mg tablet 500 mg PO BID #28 tab 10/01/18 oxycodone 5 mg tablet 5 mg PO BID PRN #20 tab 10/16/18 Carvedilol [Coreg] 3.125 mg PO BID 10/22/18 Docusate Sodium [Colace] 100 mg PO DAILY 10/22/18 Potassium Chloride 10 meq PO BID 10/22/18 - Patient Allergies Allergies/Adverse Reactions: Allergies 3 Allergy/AdvReac Type Severity Reaction Status Date / Time No Known Allergies Allergy Verified 10/16/18 09:11 Past Medical History - heen HEENT History: Denies History Cardiovascular History: Hypertension, CHF, Previous VA, PVD, Other (please comment) Additional Cardiovasular History: ANASARCA/H&P states hypotension Respiratory History: COPD Gastrointestinal History: Other (please comment) Additional Gastrointestinal History: ASCITES, CURRENTLY BEING TESTED FOR DIAGNOSIS TO CAUSE OF ASCITES. POSSIBLE METASTATIC DISEASE./Bacterial Peritonitis Genitourinary History: Denies History Endocrine History: Type 2 Diabetes (insulin) Musculoskeletal History: Denies History Prosthesis or Implant: No Neurological History: Multiple Sclerosis Blood Disorders: Denies History Psychiatric History: Depression History of Sexually Transmitted Diseases: No Cancer History: Denies History History of MDRO: No History of Other Communicable Diseases: No Alcohol Use: Occasionally In the Past 12 Months, Have Used or Abuse Any Substance: None Previous Surgical History: Yes Type / Date of Surgery: HEART CATH, tonsils/Colonoscopy Anesthesia Reactions: No Malignant Hyperthermia: No Significant Family History: No pertinent family hx ROS - Limitations ROS Limitations: Clinical Condition (Review of systems unavailable because the patient states it is too painful to talk.) GI Bleed / Rectal Complaint PE - General Appearance General Appearance: POSITIVE: Alert, No Evidence of Trauma, Moderate Distress - HEENT HEENT: POSITIVE: Head Inspection Nml, Ears Inspection Nml, Nose Inspection Nml, Oral/Dental Inspect. Nml, Pharynx Inspect. Nml, PERRL, EOMI, Scleral Icterus - Neck Neck: POSITIVE: Normal Inspection, No Apparent Injury - Respiratory Respiratory: POSITIVE: No Respiratory Distress, Breath Sounds Normal, Chest Non- Tender - Cardiovascular Cardiovascular: POSITIVE: Regular Rate and Rhythm, Heart Sounds Normal, Strong Pulses Peripheral Pulses: Radial (R): 4+, Dorsalis-pedis (R): 4+, Dorsalis-pedis (L): 4 + - Abdomen Abdomen: Soft: (All Quadrants), Normal Bowel Sounds: (All Quadrants), No Splenomegaly: (All Quadrants), No Hepatomegaly: (All Quadrants), No Guarding: ( All Quadrants), No Rebound: (All Quadrants), No Palpable Pulse: (All Quadrants) , No [place] Mass: (All Quadrants), No Distention: (All Quadrants), No Rigidity: (All Quadrants), Tenderness Noted: (All Quadrants) - Skin Skin: POSITIVE: Color Normal, No Rash, Warm, Dry - Extremities Extremity: Non-Tender: (All Extremities), Normal ROM: (All Extremities), Normal Inspection: (All Extremities), Pelvis Stable: (All Extremities) - Neurological / Psychological Neurological: POSITIVE: Affect Apporpriate, Oriented X3, Motor Normal, Sensation Normal GI Bleed / Rectal Progress - Results Reviewed by me Xrays/CTs/US Reviewed by me: Yes Discussed with Radiologist: Yes Lab Results Reviewed by Me: Yes Lab Results:: Laboratory Results 3 10/22/18 10/22/18 10/22/18 17:13 17:13 17:13 WBC 15.14 H RBC 5.23 Hgb 15.6 Hct 44.4 MCV 84.9 MCH 29.8 MCHC 35.1 RDW Std Deviation 63.3 H RDW Coeff of Yaniv 21.6 H Plt Count 495 H MPV 11.0 Immature Gran % (Auto) 0.6 Neut % (Auto) 88.4 H Lymph % (Auto) 5.4 L [place] % (Auto) 5.5 Eos % (Auto) 0 Baso % (Auto) 0.1 Immature Gran # (Auto) 0.09 Neut # (Auto) 13.40 Lymph # (Auto) 0.81 [place] # (Auto) 0.83 H Eos # (Auto) 0 Baso # (Auto) 0.01 WBC Morphology Comment Normal morphology Plt Morphology Comment Normal morphology RBC Morph Comment Normal morphology PT 12.3 H INR 1.19 VBG pH VBG pCO2 VBG HCO3 VBG Base Excess Sodium 130 L Potassium 5.0 Chloride 88 L Carbon Dioxide 21 L Anion Gap 21 H BUN 39 H Creatinine 1.6 H Estimated GFR 44 BUN/Creatinine Ratio 24.37 H Glucose 185 H Calculated Osmolality 283.0 Calcium 8.2 L Magnesium 2.4 Total Bilirubin 5.7 H AST 210 H ALT 87 H Alkaline Phosphatase 1082 H Ammonia C-Reactive Protein 29.9 H NT-Pro-B Natriuret Pep 8290 H Total Protein 6.9 Albumin 3.7 Globulin 3.2 Albumin/Globulin Ratio 1.10 L Amylase 38 Lipase 100 3 10/22/18 10/22/18 17:13 17:31 WBC RBC Hgb Hct MCV MCH MCHC RDW Std Deviation RDW Coeff of Yaniv Plt Count MPV Immature Gran % (Auto) Neut % (Auto) Lymph % (Auto) [place] % (Auto) Eos % (Auto) Baso % (Auto) Immature Gran # (Auto) Neut # (Auto) Lymph # (Auto) [place] # (Auto) Eos # (Auto) Baso # (Auto) WBC Morphology Comment Plt Morphology Comment RBC Morph Comment PT INR VBG pH 7.35 VBG pCO2 43 L VBG HCO3 23 VBG Base Excess -2 Sodium Potassium Chloride Carbon Dioxide Anion Gap BUN Creatinine Estimated GFR BUN/Creatinine Ratio Glucose Calculated Osmolality Calcium Magnesium Total Bilirubin AST ALT Alkaline Phosphatase Ammonia < 9 L C-Reactive Protein NT-Pro-B Natriuret Pep Total Protein Albumin Globulin Albumin/Globulin Ratio Amylase Lipase CBC and BMP: 10/22/18 17:13 10/22/18 17:13 - Patient's Progress Pain Medication Addressed: POSITIVE: Yes Re-Examine Time:: 21:09 Status: POSITIVE: Improved MDM / ED Course: Patient was evaluated, an IV started, blood drawn and sent to the lab for studies, CT examination of his abdomen was obtained. Findings: CBC shows white count of 15.14, platelets are 495, neutrophils are 88.4%, leukocytes are 5.4%. Coag studies show PT of 12.3 and an INR 1.19. Blood gases show pH is 7.35, PCO2 of 43, bicarbonate of 2.3, base excess of -2. BNP is elevated at 8290. Lipase is normal at 100, amylase normal at 38. Ammonia is less than 9. CRP is elevated at 29.9. CMP shows electrolyte dyscrasia with sodium of 1:30, chloride of 88, bicarbonate of 21, BUN of 39, creatinine of 1.6, calcium of 8.2, glucose of 185, anion gap of 21, total bilirubin of 5.7, AST of 210, ALT of 87, alkaline phosphatase 1082. CT scan of his abdomen shows no evidence of GI bleed within the limits of the exam, unchanged morphology and differential for the appearance of the liver and mesentery, moderate to large volume ascites with continuation slightly higher than simple fluid. Assessment: #1 adenocarcinoma the colon with metastasis to the liver area #2 ascites. #3 nausea and vomiting. Plan: Patient is being admitted. Consultation is made with surgery who will see the patient in the hospital. Patient Care Time - Estimated PCT Patient Care Time (In Minutes): 60 Vital Signs - Recent Vital Signs Vital Signs: Vital Signs (Last 8 hours) Temp Pulse Resp BP Pulse Ox 10/22/18 16:30 96.6 F L 103 H 24 111/72 100 - VS Reviewed Vital Signs Reviewed: Yes Discharge Clinical Impression: Adenocarcinoma of colon metastatic to liver, Abdominal pain, Ascites, Nausea and vomiting Discharge Disposition: Admit to Inpatient Condition: Stable Follow Up With: LETTY LATHAM [Primary Care Provider] - Date Decision to Admit to Inpatient: 10/22/18 Time Decision to Admit to Inpatient: 21:01
[2018-10-22 17:30] LABS: BASOPHILS # (AUTO) 0.01 10*3/UL; BASOPHILS % (AUTO) 0.1 % (0-1); EOSINOPHILS # (AUTO) 0 10*3/UL; EOSINOPHILS % (AUTO) 0 % (0-8); Hematocrit [HCT] 44.4 % (42.0-52.0); Hemoglobin [HGB] 15.6 g/dL (14.0-18.0); LYMPHOCYTES # (AUTO) 0.81 10*3/uL; MEAN CORPUSCULAR HEMOGLOBIN 29.8 PG (27-31); MEAN CORPUSCULAR HGB CONC 35.1 g/dL (33-37); MEAN CORPUSCULAR VOLUME 84.9 FL (80-90); MONOCYTES # (AUTO) 0.83 10*3/UL (0.3-0.8); MONOCYTES % (AUTO) 5.5 % (5-15); NEUTROPHILS % (AUTO) 88.4 % (50-80); RED BLOOD COUNT 5.23 10^6/uL (4.70-6.10)
[2018-10-22 17:40] LABS: VENOUS PH 7.35 (7.32-7.42)
[2018-10-22 17:47] LABS: BUN/CREATININE RATIO 24.37 (6-20); PLATELET MORPHOLOGY COMMENT NORMAL MORPHOLOGY (NORM); RBC MORPHOLOGY COMMENT NORMAL MORPHOLOGY (NORM); SERUM ALBUMIN 3.7 g/dL (3.5-4.8); WBC MORPHOLOGY COMMENT NORMAL MORPHOLOGY (NORM)
--- NOTE | 2018-10-22 19:45 | DI ---
CT Abdomen/Pelvis WO Contrast 10/22/2018 7:01 PM History: [facility] [place] [facility] ^GI BLEEDING Comparison: CT abdomen/pelvis 10/14/2018, 09/10/2018. Technique: Imaging was performed with a multi-detector CT scanner. Data acquisition was obtained from the dome of the diaphragm through the lesser trochanters without oral or intravenous contrast materi al. Multiplanar reformations were performed. Findings: The appearance of the liver and mesentery is not significantly changed compared to the most recent imaging given the differences in technique. Moderate to large amount of diffuse ascites is pr esent with attenuation slightly higher than expected of simple fluid. Further evaluation of the abdomen shows no significant change of the remaining solid organs. Hollow v iscus organs demonstrate normal course and caliber. Vascular structures are grossly intact with uncha nged 3.8 cm infrarenal abdominal aortic aneurysm. There is no free intraperitoneal air. There is a tiny left pleural effusion. There is no dense consolidation. There is cardiomegaly without pericardial effusion. The osseous structures are within normal limits for age. Impression: 1. No evidence of GI bleed within the limits of this exam. 2. Unchanged morphology and differential for the appearance of the liver and mesentery. 3. Moderate to large volume ascites with attenuation slightly higher than simple fluid.
[2018-10-22] MEDS ORDERED: LIDOCAINE W/ SODIUM BICARB 0.5 ML SYR SUBD PRN (22:29)
[2018-10-22] MEDS ORDERED: ACETAMINOPHEN 325 MG TABLET PO PRN (22:29)
[2018-10-22] MEDS ORDERED: CALCIUM CARBONATE 500 MG (TUMS) CHEWABLE TABLET PO PRN (22:29)
[2018-10-22] MEDS ORDERED: DOCUSATE 100 MG CAPSULE PO PRN (22:29)
[2018-10-22] MEDS ORDERED: HYDROmorphone 2 MG/1 ML IVP PRN (22:29)
[2018-10-22] MEDS ORDERED: HYDROcodone-APAP 5 MG -325 MG TABLET PO PRN (22:29)
[2018-10-22] MEDS ORDERED: Prochlorperazine Edisylate Inj 10mg/2ml vial ONE (22:34)
[2018-10-22] MEDS: Prochlorperazine Edisylate Inj 10mg/2ml vial IVP PRN (22:45)
--- NOTE | 2018-10-22 23:31 | PDOC ---
HPI - History of Present Illness Date of Service: 10/22/18 Time of Service: 23:24 Chief Complaint: Nausea and vomiting and abdominal pain History of Present Illness: This is a very pleasant but unfortunately very ill 63-year-old male who has metastatic adenocarcinoma of the colon with metastatic disease to the liver, congestive heart failure with ejection fraction around 30%, alcohol abuse history, diabetes mellitus type II, malignant ascites, amongst other conditions who presents here tonight with increase in abdominal pain and nausea and vomiting that's been very persistent. Despite multiple doses of Zofran in the emergency room his nausea and vomiting was very difficult to improve. The patient states to me very specifically does not want to be resuscitated and he is highly considering going into hospice. He is not convinced that he'll do well with surgical therapy for colon cancer. He was asked rescheduled to see a surgeon tomorrow to discuss options regarding this adenocarcinoma. The patient states to me that he just wants to be comfortable. He states that his nausea does seem to get worse when he has more fluid and he recently had a tap on October 13 with about 6-1/2 L removed on my review of the procedure note. He states he could not take any medications today as he was just too nauseous. He denies any depression and denies any suicidal ideation. He states to me is trying to be realistic about his medical situation and knows that he is dying. We talked about hospice and the patient seems fairly receptive and wants to talk more about it tomorrow. Reported hematemesis to the emergency room physician, and despite his significant vomiting, his hemoglobin was normal. He has not had a prior EGD. Past Medical History Medical History: 1. CAD, s/p stent attempt in RCA with non q wave MA and intraaortic balloon pump. 2. poorly controlled DMII. 3. hypercholesterolemia. 4. tobacco abuse. 5. remote history of alcohol abuse. 6. medical noncompliance. 7. Ascites that is malignant ascites from colon cancer with liver metastasis (please note that liver metastasis is not proven by biopsy but likely based on imaging). 8. Adenocarcinoma, moderately differentiated, of the colon. Likely with liver metastasis Surgical History: Outside of recent paracentesis procedures, none Pertinent Family History: He states his mother of Alzheimer's dementia. His father side of the family had heart disease. Past Social History: Smokes although cannot quantify how much per day. He drinks alcohol. He has a daughter that he is estranged from. He lives alone here in [place]. His father checks in on him frequently. Tobacco Use: Current Every Day Smoker In the Past 12 Months, Have Used or Abuse Any of the Following Substance: None Alcohol Use: Heavy Medication / Allergies Home Medications: Home Medications 3 Medication Instructions Recorded Confirmed Type Furosemide [Lasix] 20 mg PO DAILY #30 tab 09/20/18 10/22/18 Rx Insulin Detemir [Levemir Flextouch] 8 unit SUBCUT BEDTIME #1 insuln.pen 10/22/18 Rx Spironolactone 50 mg PO DAILY #30 tab 09/20/18 10/22/18 Rx Pantoprazole Sodium [Protonix] 40 mg PO DAILY #60 tablet.dr 09/30/18 10/22/18 Rx amoxicillin 500 mg tablet 1,000 mg PO BID #28 tab 10/01/18 10/22/18 Rx clarithromycin 500 mg tablet 500 mg PO BID #28 tab 10/01/18 10/22/18 Rx oxycodone 5 mg tablet 5 mg PO BID PRN #20 tab 10/16/18 10/22/18 Rx Carvedilol [Coreg] 3.125 mg PO BID 10/22/18 10/22/18 History Docusate Sodium [Colace] 100 mg PO DAILY 10/22/18 10/22/18 History Potassium Chloride 10 meq PO BID 10/22/18 10/22/18 History Allergies/Adverse Reactions: Allergies 3 Allergy/AdvReac Type Severity Reaction Status Date / Time No Known Allergies Allergy Verified 10/16/18 09:11 Review of Systems - Respiratory Respiratory: REPORTS: Negative System Review - Cardiovascular Cardiovascular: REPORTS: Negative System Review - Gastrointestinal Gastrointestinal / Abdominal: REPORTS: Nausea, Vomiting Exam - Vitals Vital Signs: Vital Signs Temperature 97.1 F Temperature Source Temporal Artery Scan Pulse Rate [Pulse Oximeter] 101 Respiratory Rate 18 Blood Pressure [Left Arm] 91/59 Pulse Ox 96 Oxygen Delivery Method Room Air Height 5 ft 9 in Weight 145 lb - General General Appearance: No Acute Distress, Cooperative Additional General Exam Details: Appears ill but not toxic - Head Additional Head Exam Details: Has temporal wasting. - Eye Eye Exam: POSITIVE: Scleral Icterus - ENT ENT Exam: POSITIVE: Mucous Membranes Dry - Neck Neck Exam: Normal Inspection, JVP is not Raised - Respiratory Respiratory Exam: POSITIVE: Breathing Non Labored, Decreased Breath Sounds (In the bases) - Cardiovascular Cardiovascular Exam: POSITIVE: RRR, No Murmur, No Clicks, No Gallops, No Rubs, No JVD - GI/Abdominal GI/Abdominal Exam: POSITIVE: Normal Bowel Sounds, Non Tender, Soft, Positive for Ascites - Rectal Rectal Exam: POSITIVE: Deferred - External Exam: POSITIVE: Deferred Exam: POSITIVE: Deferred - Extremities Extremities Exam: POSITIVE: No Cyanosis Present, Clubbing Present, +1 Edema (In the lower extremities.) - Neurological Neurological Exam: POSITIVE: Alert, Oriented x 3, No Facial Droop, Speech Intact / Clear, Moves All Extremities Equally - Psychiatric Psychiatric Exam: POSITIVE: Normal Affect, Normal Mood Results - Labs CBC and BMP: 10/22/18 17:13 10/22/18 17:13 Additional Lab Results: Laboratory Results 10/22/18 10/22/18 10/22/18 Range/Units 17:13 17:13 17:13 WBC 15.14 H (4.8-10.8) 10^3/uL RBC 5.23 (4.70-6.10) 10^6/uL Hgb 15.6 (14.0-18.0) g/dL Hct 44.4 (42.0-52.0) % MCV 84.9 (80-90) FL MCH 29.8 (27-31) PG MCHC 35.1 (33-37) g/dL RDW Std Deviation 63.3 H (39-50) fL RDW Coeff of Yaniv 21.6 H (11.5-14.5) % Plt Count 495 H (140-350) 10*3/uL MPV 11.0 (7.4-12.2) FL Immature Gran % (Auto) 0.6 (0-5) % Neut % (Auto) 88.4 H (50-80) % Lymph % (Auto) 5.4 L (10-50) % [place] % (Auto) 5.5 (5-15) % Eos % (Auto) 0 (0-8) % Baso % (Auto) 0.1 (0-1) % Immature Gran # (Auto) 0.09 10*3/UL Neut # (Auto) 13.40 10*3/UL Lymph # (Auto) 0.81 10*3/uL [place] # (Auto) 0.83 H (0.3-0.8) 10*3/UL Eos # (Auto) 0 10*3/UL Baso # (Auto) 0.01 10*3/UL WBC Morphology Comment Normal morphology (NORM) Plt Morphology Comment Normal morphology (NORM) RBC Morph Comment Normal morphology (NORM) PT 12.3 H (9.7-11.4) secs INR 1.19 (0.00-5.90) N/A VBG pH (7.32-7.42) VBG pCO2 (45-55) mmHg VBG HCO3 (22-26) mmol/L VBG Base Excess (-2-2) MMOL/L Sodium 130 L (135-145) meq/L Potassium 5.0 (3.8-5.2) meq/L Chloride 88 L (98-112) meq/L Carbon Dioxide 21 L (23-33) meq/L Anion Gap 21 H (5-20) BUN 39 H (7-22) mg/dL Creatinine 1.6 H (0.70-1.50) mg/dL Estimated GFR 44 (>60 ml/min/1.73m(2)) BUN/Creatinine Ratio 24.37 H (6-20) Glucose 185 H (78-110) mg/dL Calculated Osmolality 283.0 (267-292) mOsm/kg Calcium 8.2 L (8.7-10.7) mg/dL Magnesium 2.4 (1.6-2.4) mg/dL Total Bilirubin 5.7 H (0.3-1.2) mg/dL AST 210 H (21-57) IU/L ALT 87 H (21-72) IU/L Alkaline Phosphatase 1082 H (38-126) IU/L Ammonia (9.0-33.0) UMOL/L C-Reactive Protein 29.9 H (0.0-0.9) mg/dL NT-Pro-B Natriuret Pep 8290 H (0-125) PG/ML Total Protein 6.9 (6.1-8.0) g/dL Albumin 3.7 (3.5-4.8) g/dL Globulin 3.2 (2.50-4.10) g/dL Albumin/Globulin Ratio 1.10 L (1.3-2.0) mg/g Amylase 38 (30-110) U/L Lipase 100 (23-300) IU/L 10/22/18 10/22/18 Range/Units 17:13 17:31 WBC (4.8-10.8) 10^3/uL RBC (4.70-6.10) 10^6/uL Hgb (14.0-18.0) g/dL Hct (42.0-52.0) % MCV (80-90) FL MCH (27-31) PG MCHC (33-37) g/dL RDW Std Deviation (39-50) fL RDW Coeff of Yaniv (11.5-14.5) % Plt Count (140-350) 10*3/uL MPV (7.4-12.2) FL Immature Gran % (Auto) (0-5) % Neut % (Auto) (50-80) % Lymph % (Auto) (10-50) % [place] % (Auto) (5-15) % Eos % (Auto) (0-8) % Baso % (Auto) (0-1) % Immature Gran # (Auto) 10*3/UL Neut # (Auto) 10*3/UL Lymph # (Auto) 10*3/uL [place] # (Auto) (0.3-0.8) 10*3/UL Eos # (Auto) 10*3/UL Baso # (Auto) 10*3/UL WBC Morphology Comment (NORM) Plt Morphology Comment (NORM) RBC Morph Comment (NORM) PT (9.7-11.4) secs INR (0.00-5.90) N/A VBG pH 7.35 (7.32-7.42) VBG pCO2 43 L (45-55) mmHg VBG HCO3 23 (22-26) mmol/L VBG Base Excess -2 (-2-2) MMOL/L Sodium (135-145) meq/L Potassium (3.8-5.2) meq/L Chloride (98-112) meq/L Carbon Dioxide (23-33) meq/L Anion Gap (5-20) BUN (7-22) mg/dL Creatinine (0.70-1.50) mg/dL Estimated GFR (>60 ml/min/1.73m(2)) BUN/Creatinine Ratio (6-20) Glucose (78-110) mg/dL Calculated Osmolality (267-292) mOsm/kg Calcium (8.7-10.7) mg/dL Magnesium (1.6-2.4) mg/dL Total Bilirubin (0.3-1.2) mg/dL AST (21-57) IU/L ALT (21-72) IU/L Alkaline Phosphatase (38-126) IU/L Ammonia < 9 L (9.0-33.0) UMOL/L C-Reactive Protein (0.0-0.9) mg/dL NT-Pro-B Natriuret Pep (0-125) PG/ML Total Protein (6.1-8.0) g/dL Albumin (3.5-4.8) g/dL Globulin (2.50-4.10) g/dL Albumin/Globulin Ratio (1.3-2.0) mg/g Amylase (30-110) U/L Lipase (23-300) IU/L - Imaging Status: Image Reviewed by Me (On my view of the CT scan of the abdomen and pelvis there is a significant amount of ascites present.) Assessment and Plan - Patient Problems (1) Adenocarcinoma of colon metastatic to liver Current Visit: Yes Status: Acute Code(s): C18.9 - Malignant neoplasm of colon, unspecified; C78.7 - Secondary malignant neoplasm of liver and intrahepatic bile duct (2) Nausea and vomiting Current Visit: Yes Status: Acute Code(s): R11.2 - Nausea with vomiting, unspecified Qualifiers: Vomiting type: cyclical vomiting Vomiting Intractability: intractable Qualified Code(s): G43.A1 - Cyclical vomiting, intractable (3) Abdominal pain Current Visit: Yes Status: Acute Code(s): R10.9 - Unspecified abdominal pain (4) Ascites Current Visit: Yes Status: Acute Code(s): R18.8 - Other ascites Qualifiers: Ascites type: malignant Qualified Code(s): R18.0 - Malignant ascites (5) Chronic systolic heart failure Current Visit: No Status: Acute Code(s): I50.22 - Chronic systolic ( congestive) heart failure (6) Poorly controlled type 2 diabetes mellitus Current Visit: Yes Status: Acute Code(s): E11.65 - Type 2 diabetes mellitus with hyperglycemia (7) Tobacco abuse Current Visit: Yes Status: Acute Code(s): Z72.0 - Tobacco use (8) Hypertension Current Visit: Yes Status: Chronic Code(s): I10 - Essential (primary) hypertension Qualifiers: Hypertension type: essential hypertension Qualified Code(s): I10 - Essential (primary) hypertension (9) Coronary artery disease Current Visit: Yes Status: Chronic Code(s): I25.10 - Atherosclerotic heart disease of [place] coronary artery without angina pectoris Qualifiers: Coronary Disease-Associated Artery/Lesion type: [place] artery [place] vs. transplanted heart: [place] heart Associated angina: without angina Qualified Code(s): I25.10 - Atherosclerotic heart disease of [place] coronary artery without angina pectoris - Assessment / Plan Additional Assessment/Plan Details: I think the patient is very cognizant of his medical state, and he states to me DO NOT RESUSCITATE. I would agree with that. He has a fairly low ejection fraction at 30%, but does not have any active ischemic type symptoms, no active chest pain, no exertional shortness of breath or chest pain, but he is a poor surgical candidate based on his ejection fraction and congestive heart failure. Based on his metastatic adenocarcinoma the colon with liver metastasis, he is not a candidate for an AICD. The patient emphasized that he wishes to have symptoms of primary pain and discomfort treated above all else, and he would like to hear some considerations from surgery tomorrow and I will consult them to discuss with the patient options with his adenocarcinoma. I suggested hospice care as an option for the patient. If he decides to consider hospice, I think he would be best situated if he was in the hospice Hospital based on his current living situation. In addition, I think the patient would benefit from permanent paracentesis drain placement, but only if he determines that he is going to hospice. He has refractory ascites and it is not responding at all to diuretics. Antiemetics and pain medications. I'll check labs in a.m., but at this time I don't think that there is a significant GI bleed if the patient's having hematemesis. Perhaps CBC will show different in the morning, but I think at this time hold off on an EGD just yet. Protonix will be given tonight and twice a day. Patient is okay with the plan above and I discussed it with him.
[2018-10-22] MEDS ORDERED: NICOTINE 21 MG /DAY PATCH TRANSDERM PRN (23:38)
[2018-10-23] MEDS: PANTOPRAZOLE IV 40 MG VIAL IVP SCH ×2 (00:19→12:09)
[2018-10-23] MEDS: Sodium Chloride 0.9% 1,000 ML PRIMARY IV SCH ×4 (00:21→22:41)
[2018-10-23] MEDS: ONDANSETRON 4 MG/2 ML VIAL IVP PRN (01:26)
[2018-10-23 05:53] LABS: Hematocrit [HCT] 37.2 % (42.0-52.0); Hemoglobin [HGB] 12.9 g/dL (14.0-18.0); MEAN CORPUSCULAR HEMOGLOBIN 29.2 PG (27-31); MEAN CORPUSCULAR HGB CONC 34.7 g/dL (33-37); MEAN CORPUSCULAR VOLUME 84.2 FL (80-90); RED BLOOD COUNT 4.42 10^6/uL (4.70-6.10)
[2018-10-23 06:05] LABS: BUN/CREATININE RATIO 33.07 (6-20); SERUM ALBUMIN 2.7 g/dL (3.5-4.8)
[2018-10-23] MEDS: CARVEDILOL 3.125 MG TABLET PO SCH ×2 (08:52→20:15)
[2018-10-23] MEDS: Potassium Chloride Tab 10 MEQ TAB PO SCH ×2 (08:52→20:15)
[2018-10-23] MEDS ORDERED: PANTOPRAZOLE 40 MG TABLET PO SCH (09:00)
[2018-10-23] MEDS: Patch Removal NICOTINE PATCH TRANSDERM SCH (11:11)
[2018-10-23] MEDS ORDERED: LORazepam 2 MG/1 ML VIAL IVP ONE (11:56)
[2018-10-23] MEDS ORDERED: LORazepam 2 MG/1 ML VIAL ONE (12:11)
[2018-10-23] MEDS ORDERED: MORPHINE SULFATE 10 MG/1 ML ONE (12:24)
[2018-10-23] MEDS ORDERED: MORPHINE SULFATE 10 MG/1 ML IVP ONE (12:25)
--- NOTE | 2018-10-23 12:54 | PDOC(PROG) ---
Date of Service: 10/23/18 Time of Service: 08:00 Interval History: Patient seen in a clock this morning. I came and discussed pathology with him. He has adenocarcinoma arising from the colon. Most likely he has metastatic disease is place his liver. I think his ascites is secondary to the cancer. Also he probably is omental caking. His prognosis is grave. As far as his acutely elevated liver enzymes that he has has been bilirubin above 5 I think the patient needs an MRCP to make sure the patient does not have a common duct stone. The patient tells me does not want any additional treatment for his cancer and would like to go on hospice and end-of-life care. I discussed all this with Dr. Stern Objective : Data - Labs CBC and BMP: 10/23/18 05:35 10/23/18 05:35 - Vital Signs Vital Signs and I&O: Vital Signs - Last Taken Temperature 97.8 F 10/23/18 04:34 Pulse Rate 95 10/23/18 04:34 Respiratory Rate 20 10/23/18 04:34 Blood Pressure 106/62 10/23/18 04:34 Pulse Ox 96 10/23/18 05:39 Intake and Output (24hr x 4 totals) 10/21/18 10/22/18 10/23/18 10/24/18 05:59 05:59 05:59 05:59 Intake Total 1300 / 1300 120 / 120 Output Total 75 / 75 Balance 1300 / 1300 45 / 45 Assessment and Plan - Patient Problems (1) Adenocarcinoma of colon metastatic to liver Current Visit: Yes Status: Acute Code(s): C18.9 - Malignant neoplasm of colon, unspecified; C78.7 - Secondary malignant neoplasm of liver and intrahepatic bile duct
--- NOTE | 2018-10-23 16:07 | PDOC(PROG) ---
Date of Service: 10/23/18 Time of Service: 16:02 Interval History: Patient seen and evaluated twice today. Has had intermittent abdominal pain, nausea has been persistent. No chest pain and no shortness of breath. Ascites is not very comfortable. He is agreeable to a permanent drainage catheter placement and realizes that it could cause infection but he feels his comfort and relief of his primary symptoms of pain and discomfort with catheter drainage persistently of ascites fluid far outweighs the risk of infection to him. I did review the procedure as suggested by care fusion, and it may be advantageous to have surgery to this and I'll discuss with surgery. We did try to do an MRI of the abdomen but the patient could not tolerate the procedure, refused to have any more procedures done aside from the permanent catheter placement. Objective : Data - Labs CBC and BMP: 10/23/18 05:35 10/23/18 05:35 Additional Lab Results: 10/23/18 05:35 Total Bilirubin 4.0 H AST 169 H ALT 68 Alkaline Phosphatase 672 H Total Protein 5.5 L Albumin 2.7 L Globulin 2.8 Albumin/Globulin Ratio 0.90 L Objective : Exam - General General Appearance: No Acute Distress, Cooperative Additional General Exam Details: Vital Signs - Last Taken Temperature 96.6 F L 10/23/18 13:00 Pulse Rate 81 10/23/18 13:00 Respiratory Rate 16 10/23/18 13:00 Blood Pressure 111/81 10/23/18 13:00 Pulse Ox 97 10/23/18 13:00 Ill but nontoxic - Eye Eye Exam: Scleral Icterus - ENT ENT Exam: Mucous Membranes Dry - Neck Neck Exam: JVP is not Raised - Respiratory Respiratory Exam: Breathing Non Labored, Decreased Breath Sounds (In the bases) , Coarse Breath Sounds - Cardiovascular Cardiovascular Exam: RRR, No Murmur, No Clicks, No Gallops, No Rubs, No JVD - GI/Abdominal GI/Abdominal Exam: Normal Bowel Sounds, Non Distended, Positive for Ascites - Extremities Extremities Exam: Clubbing Present, +1 Edema - Neurological Neurological Exam: Alert, Oriented x 3, No Facial Droop, Speech Intact / Clear, Moves All Extremities Equally Assessment and Plan - Patient Problems (1) Adenocarcinoma of colon metastatic to liver Current Visit: Yes Status: Acute Code(s): C18.9 - Malignant neoplasm of colon, unspecified; C78.7 - Secondary malignant neoplasm of liver and intrahepatic bile duct (2) Nausea and vomiting Current Visit: Yes Status: Acute Code(s): R11.2 - Nausea with vomiting, unspecified Qualifiers: Vomiting type: cyclical vomiting Vomiting Intractability: intractable Qualified Code(s): G43.A1 - Cyclical vomiting, intractable (3) Abdominal pain Current Visit: Yes Status: Acute Code(s): R10.9 - Unspecified abdominal pain (4) Ascites Current Visit: Yes Status: Acute Code(s): R18.8 - Other ascites Qualifiers: Ascites type: malignant Qualified Code(s): R18.0 - Malignant ascites (5) Chronic systolic heart failure Current Visit: No Status: Acute Code(s): I50.22 - Chronic systolic ( congestive) heart failure (6) Poorly controlled type 2 diabetes mellitus Current Visit: Yes Status: Acute Code(s): E11.65 - Type 2 diabetes mellitus with hyperglycemia (7) Tobacco abuse Current Visit: Yes Status: Acute Code(s): Z72.0 - Tobacco use (8) Hypertension Current Visit: Yes Status: Chronic Code(s): I10 - Essential (primary) hypertension Qualifiers: Hypertension type: essential hypertension Qualified Code(s): I10 - Essential (primary) hypertension (9) Coronary artery disease Current Visit: Yes Status: Chronic Code(s): I25.10 - Atherosclerotic heart disease of [place] coronary artery without angina pectoris Qualifiers: Coronary Disease-Associated Artery/Lesion type: [place] artery [place] vs. transplanted heart: [place] heart Associated angina: without angina Qualified Code(s): I25.10 - Atherosclerotic heart disease of [place] coronary artery without angina pectoris - Assessment / Plan Additional Assessment/Plan Details: The patient is electing for hospice care, knowing that his pain is increasing, his nausea and vomiting and symptoms have been uncontrollable with medications, and that his prognosis is extremely poor with omental caking, metastatic disease to the liver, and adenocarcinoma of the colon. He would like a permanent catheter placed to have continuous drainage of his ascites, and I'll work with surgery to try and get that drain placed. Referrals went to the [facility] hospice. The patient is not a candidate to do hospice at home. We are hoping for placement. I spoke to the director. About is not quite available at this time. Vitals to every shift The patient has a tobacco addiction that at this point is not going to be treatable so I will all of patient's smoke outside the setting of allowing the patient to treat his primary symptoms of discomfort, pain, and anxiousness. The patient and his father are in agreement with the plan.
[2018-10-23] MEDS: MORPHINE SULFATE 4 MG/1 ML IVP PRN (17:24)
[2018-10-23] MEDS ORDERED: Insulin Detemir 300unit/3ml Flexpen SUBCUT SCH (21:00)
[2018-10-24] MEDS: PANTOPRAZOLE IV 40 MG VIAL IVP SCH ×2 (00:04→13:22)
[2018-10-24] MEDS: MORPHINE SULFATE 4 MG/1 ML IVP PRN ×2 (01:54→09:53)
[2018-10-24] MEDS: Prochlorperazine Edisylate Inj 10mg/2ml vial IVP PRN (01:55)
[2018-10-24] MEDS ORDERED: Lidocaine 1% 10 MG/ML - 20 ML VIAL SUBCUT ONE (09:36)
[2018-10-24] MEDS: CARVEDILOL 3.125 MG TABLET PO SCH (09:43)
[2018-10-24] MEDS: Potassium Chloride Tab 10 MEQ TAB PO SCH (09:43)
[2018-10-24] MEDS: Patch Removal NICOTINE PATCH TRANSDERM SCH (09:44)
[2018-10-24] MEDS ORDERED: MORPHINE SULFATE 4 MG/1 ML IVP ONE (11:20)
[2018-10-24] MEDS ORDERED: MORPHINE SULFATE 2 MG/1 ML ONE (11:23)
--- NOTE | 2018-10-24 12:44 | PDOC(PROG) ---
Date of Service: 10/24/18 Time of Service: 10:00 Interval History: Patient has nausea, abdominal pain, no chest pain, no shortness of breath, he would like to proceed with a permanent drainage catheter for paracentesis to control symptoms of discomfort. He would still prefer hospice bed. Objective : Data - Labs CBC and BMP: 10/23/18 05:35 10/23/18 05:35 Objective : Exam - General General Appearance: No Acute Distress, Cooperative Additional General Exam Details: Vital Signs - Last Taken Temperature 96.3 F L 10/23/18 17:00 Pulse Rate 90 10/24/18 10:00 Respiratory Rate 24 10/23/18 17:00 Blood Pressure 118/92 10/23/18 17:00 Pulse Ox 93 10/23/18 17:00 - Eye Eye Exam: Scleral Icterus - ENT ENT Exam: Mucous Membranes Moist - Neck Neck Exam: JVP is not Raised - Respiratory Respiratory Exam: Breathing Non Labored, Decreased Breath Sounds (In the bases bilaterally), Coarse Breath Sounds (In the bases bilaterally) - Cardiovascular Cardiovascular Exam: RRR, No Murmur, No Clicks, No Gallops, No Rubs, No JVD - GI/Abdominal GI/Abdominal Exam: Non Tender, Non Distended, Soft, Positive for Ascites - Extremities Extremities Exam: No Cyanosis Present, Clubbing Present, +1 Edema - Neurological Neurological Exam: Alert, Oriented x 3, No Facial Droop, Speech Intact / Clear, Moves All Extremities Equally Assessment and Plan - Patient Problems (1) Adenocarcinoma of colon metastatic to liver Current Visit: Yes Status: Acute Code(s): C18.9 - Malignant neoplasm of colon, unspecified; C78.7 - Secondary malignant neoplasm of liver and intrahepatic bile duct (2) Ascites Current Visit: Yes Status: Acute Code(s): R18.8 - Other ascites Qualifiers: Ascites type: malignant Qualified Code(s): R18.0 - Malignant ascites (3) Nausea and vomiting Current Visit: Yes Status: Acute Code(s): R11.2 - Nausea with vomiting, unspecified Qualifiers: Vomiting type: cyclical vomiting Vomiting Intractability: intractable Qualified Code(s): G43.A1 - Cyclical vomiting, intractable (4) Abdominal pain Current Visit: Yes Status: Acute Code(s): R10.9 - Unspecified abdominal pain (5) Chronic systolic heart failure Current Visit: No Status: Acute Code(s): I50.22 - Chronic systolic (congestive) heart failure (6) Poorly controlled type 2 diabetes mellitus Current Visit: Yes Status: Acute Code(s): E11.65 - Type 2 diabetes mellitus with hyperglycemia (7) Tobacco abuse Current Visit: Yes Status: Acute Code(s): Z72.0 - Tobacco use (8) Hypertension Current Visit: Yes Status: Chronic Code(s): I10 - Essential (primary) hypertension Qualifiers: Hypertension type: essential hypertension Qualified Code(s): I10 - Essential (primary) hypertension (9) Coronary artery disease Current Visit: Yes Status: Chronic Code(s): I25.10 - Atherosclerotic heart disease of [place] coronary artery without angina pectoris Qualifiers: Coronary Disease-Associated Artery/Lesion type: [place] artery [place] vs. transplanted heart: [place] heart Associated angina: without angina Qualified Code(s): I25.10 - Atherosclerotic heart disease of [place] coronary artery without angina pectoris - Assessment / Plan Additional Assessment/Plan Details: The patient once primary symptoms of pain and discomfort treated and does not want any more procedures outside of permanent paracentesis drain placed. We are waiting disposition as possible [facility] with hospice services there versus [facility] and a hospice bed there. His pain is escalating and is been asking more frequently for pain medications. See procedure note separate of this service regarding paracentesis drain placement
--- NOTE | 2018-10-24 12:55 | PROCEDURE1 ---
Procedure - - Procedure Performed: Paracentesis : With Imaging Procedure Note: Procedure performed: Paracentesis with permanent drain placement Consent was obtained from the patient. Indication for procedure was the following: Indication for procedure: [Ascites due to malignancy] Description of procedure: Ultrasound guidance was used to identify the fluid pocket for placement of paracentesis drain. The Pleurx pleural catheter drain kit was utilized. The area in the right mid lower quadrant prepped, draped, and under sterile fashion, 2 points were identified about 5 cm apart. Wheels of lidocaine were made and a tract was numbed for passage of the catheter. A needle was inserted into the peritoneal space with a surrounding catheter. A guidewire was inserted into the peritoneal space. Confirmation of the peritoneal space was noted by drawback on the syringe when placing the needle with surrounding catheter. The needle was removed. The catheter was then removed but unfortunately the needle cut about an inch of the catheter, plastic, and it could not be retrieved from the peritoneal space. I did disclose this to the patient and he is aware of the presence of the catheter and he said not to worry about it he was okay with everything as the drain did work. The guidewire presence was maintained in a 10 blade scalpel was used to make approximately a centimeter incision 5 cm apart, one at the placement of the guidewire and the other superior by about 5 cm. Hemostat was used to expand the 1 cm incisions to allow passage of the Pleurx drain catheter. This was tolerated well by the patient. A trocar was attached to the fenestrated and of a 15 [place] Pleurx catheter and this was passed from the superior incision into the inferior incision by the guidewire. At this point a dilation trocar was passed over the guidewire using Seldinger technique and then that was removed. A peel-away catheter was then placed over the guidewire into the peritoneal space and the guidewire was removed. At no point did small part of catheter come back. Again I disclose this to the patient during the procedure. Again, the patient stated it was okay that he was very pleased with the fact that the drain would work and relieve his pain and discomfort. The Pleurx catheter was then inserted into the pillow a trocar and the pillow a trocar was pulled away with all of it being obtained from the pleural space. All of the fenestrations were within the pleural space. At this point, I again explored the inferior incision to try and find the portion of the initial insertion catheter for the guidewire placement that had broken off. It was not obtainable. Pleurx catheter was then attached to a Pleurx drain collection bottle to confirm that the catheter with drain the peritoneal fluid. We took off 2500 mL of dark and cloudy peritoneal fluid. It was disposed of. No studies were done. The Pleurx catheter was then dressed, sutured into place at the superior end. The inferior incision was then closed with simple interrupted sutures. Hemostasis was achieved. Anesthesia: Local with lidocaine. 20 mL Estimated blood loss: Less than 1 mL Disposition: Patient remains admitted in the hospital awaiting placement for hospice for adenocarcinoma of the colon with metastatic ascites, omental caking, and metastatic disease to the liver. Complications: As mentioned the introducer catheter sheath was cut by the needle withdrawing from the guidewire in the peritoneal space. Approximately an inch of plastic catheter sheath remains in the peritoneal space. This was disclosed to the patient. He stated to me that in his situation, knowing that he is going to , his biggest concern was whether or not the catheter was draining appropriately to control his pain and discomfort and he was very pleased with the procedure. He was very grateful that I disclosed this to him.
[2018-10-24] MEDS ORDERED: Keys-Morphine Palliative Care ONE (19:08)
[2018-10-24] MEDS: Morphine Drip 250mg/250ml 250 MG/250 ML PLAST..BAG IV SCH (19:10)
[2018-10-24] MEDS: Sodium Chloride 0.9% 1,000 ML PRIMARY IV SCH (19:11)
[2018-10-24] MEDS: SCOPOLAMINE HYDROBROMIDE 1.5 MG - 1 EACH PATCH TRANSDERM SCH (19:12)
[2018-10-24] MEDS: Hypromellose/Glycerin/PEG 400 Ophth Soln 15 ML DROPS EACH EYE SCH ×2 (20:39→22:59)
[2018-10-24] MEDS: ONDANSETRON 4 MG/2 ML VIAL IVP PRN (23:51)
[2018-10-25] MEDS: PANTOPRAZOLE IV 40 MG VIAL IVP SCH ×2 (00:20→11:57)
[2018-10-25] MEDS: Hypromellose/Glycerin/PEG 400 Ophth Soln 15 ML DROPS EACH EYE SCH ×9 (01:34→22:33)
[2018-10-25] MEDS: LORazepam 2 MG/1 ML VIAL IVP PRN ×2 (09:12→21:19)
[2018-10-25 11:40] VITALS: BP 82/58; RESP 12; TEMP 97.5; O2SAT 96
[2018-10-25] MEDS: Morphine Drip 250mg/250ml 250 MG/250 ML PLAST..BAG IV SCH (13:30)
[2018-10-25] MEDS ORDERED: Keys-Morphine Palliative Care ONE (13:34)
--- NOTE | 2018-10-25 16:21 | PDOC(PROG) ---
Date of Service: 10/25/18 Time of Service: 16:16 Interval History: resting comfortably on morphine drip. breathing slowing down. abdomen distended with ascites. family happy with treatment of primary symptoms of pain and discomfort. Objective : Data - Labs CBC and BMP: 10/23/18 05:35 10/23/18 05:35 Objective : Exam - General General Appearance: No Acute Distress Additional General Exam Details: Vital Signs - Last Taken Temperature 97.5 F 10/24/18 07:00 Pulse Rate 52 L 10/25/18 07:00 Respiratory Rate 6 L 10/25/18 09:19 Blood Pressure 82/58 10/24/18 18:22 Pulse Ox 96 10/24/18 18:22 - Respiratory Respiratory Exam: Clear to Auscultation - Bilaterally - Cardiovascular Cardiovascular Exam: No Murmur, No Clicks, No Gallops, No Rubs, Bradycardia, No JVD - GI/Abdominal GI/Abdominal Exam: Positive for Ascites - Extremities Extremities Exam: +1 Edema - Neurological Additional Neurological Exam Details: no response to fingernail bed compression. Assessment and Plan - Patient Problems (1) Adenocarcinoma of colon metastatic to liver Current Visit: Yes Status: Acute Code(s): C18.9 - Malignant neoplasm of colon, unspecified; C78.7 - Secondary malignant neoplasm of liver and intrahepatic bile duct (2) Ascites Current Visit: Yes Status: Acute Code(s): R18.8 - Other ascites Qualifiers: Ascites type: malignant Qualified Code(s): R18.0 - Malignant ascites (3) Nausea and vomiting Current Visit: Yes Status: Acute Code(s): R11.2 - Nausea with vomiting, unspecified Qualifiers: Vomiting type: cyclical vomiting Vomiting Intractability: intractable Qualified Code(s): G43.A1 - Cyclical vomiting, intractable (4) Abdominal pain Current Visit: Yes Status: Acute Code(s): R10.9 - Unspecified abdominal pain (5) Chronic systolic heart failure Current Visit: No Status: Acute Code(s): I50.22 - Chronic systolic (congestive) heart failure (6) Poorly controlled type 2 diabetes mellitus Current Visit: Yes Status: Acute Code(s): E11.65 - Type 2 diabetes mellitus with hyperglycemia (7) Tobacco abuse Current Visit: Yes Status: Acute Code(s): Z72.0 - Tobacco use (8) Hypertension Current Visit: Yes Status: Chronic Code(s): I10 - Essential (primary) hyp ertension Qualifiers: Hypertension type: essential hypertension Qualified Code(s): I10 - Essential (primary) hypertension (9) Coronary artery disease Current Visit: Yes Status: Chronic Code(s): I25.10 - Atherosclerotic heart disease of [place] coronary artery without angina pectoris Qualifiers: Coronary Disease-Associated Artery/Lesion type: [place] artery [place] vs. transplanted heart: [place] heart Associated angina: without angina Qualified Code(s): I25.10 - Atherosclerotic heart disease of [place] coronary artery without angina pectoris - Assessment / Plan Additional Assessment/Plan Details: drained 4200 mL of ascitic fluid off abdomen, handley placed today. treating primary symptoms of pain and discomfort. resting comfortably continue morphine drip discussed with family at bedside. they have no complaints, very happy with care and understanding of patient's decisions and wishes for his terminal cancer.
[2018-10-25] MEDS: SCOPOLAMINE HYDROBROMIDE 1.5 MG - 1 EACH PATCH TRANSDERM SCH (18:52)
--- NOTE | 2018-10-25 22:16 | DCSUMMARY ---
Hospitalization Summary Admit Date: 10/22/2018 Discharge Date: 10/25/18 Primary Diagnosis:: adenocarcinoma of the colon with metastasis Hospital Course: This is a 63 year old with known adenocarcinoma of the colon with metastatic disease who presented with severe worsening of abdominal pain, worsened malignant ascites, and he was admitted for these issues. The patient was given options regarding continued workup and treatment of his disease, knowing that any treatment would be palliative. The patient refused any further workup for preparation of chemotherapy. His nausea was severe and we thought there might be a common bile duct obstruction and offered an abdominal MRI to look and he attempted this but stopped the test and could not tolerate the test. The patient told us he wanted to go to hospice. We placed a permanent paracentesis drain to help relieve pain from ascites. The patient opted for [facility] hospice if it could be arranged but the day before he was accepted, the patient developed severe pain, bradycardia, chest pain, and hypotension. He requested treatment of primary symptoms of pain and discomfort only. He knew he would of his disease regardless of anything we could offer. The patient was placed on a morphine drip, ativan as necessary, and had his ascites drained with his permanent drain. He on 10/25/2018 with no pain. His family was in agreement of his plan and they were pleased with the relief of the patient's pain. Exam - Vitals Vital Signs: Vital Signs Data Peritnent Studies: 10/22/18 10/23/18 10/23/18 17:13 05:35 05:35 WBC 13.07 H Hgb 12.9 L Hct 37.2 L Plt Count 457 H Sodium 131 L Potassium 4.6 Chloride 95 L Carbon Dioxide 25 Anion Gap 11 BUN 43 H Creatinine 1.3 Estimated GFR 56 BUN/Creatinine Ratio 33.07 H Glucose 130 H Calculated Osmolality 284.0 Calcium 7.4 L Total Bilirubin 4.0 H AST 169 H ALT 68 Alkaline Phosphatase 672 H Total Protein 5.5 L Albumin 2.7 L Globulin 2.8 Albumin/Globulin Ratio 0.90 L Amylase 38 Lipase 100 Procedures: [address] [facility] [place] [address] PH: DD: [phone] FAX: [phone] ~DIAGNOSTIC IMAGING REPORT~ Patient: Malcolm Tong : 1955 Sex: M Age: 63 Exam Name: CT Abdomen/Pelvis WO Contrast Exam Date: 10/22/18 Report # : [id number] CPT Code: 09255 EMR/MR #: [id number] Ordering: Diony Caballero Admiting: Primary: Humberto Vee MD Attending: Signed CT Abdomen/Pelvis WO Contrast 10/22/2018 7:01 PM History: [facility] DI ^GI BLEEDING Comparison: CT abdomen/pelvis 10/14/2018, 09/10/2018. Technique: Imaging was performed with a multi-detector CT scanner. Data acquisition was obtained from the dome of the diaphragm through the lesser trochanters without oral or intravenous contrast material. Multiplanar reformations were performed. Findings: The appearance of the liver and mesentery is not significantly changed compared to the most recent imaging given the differences in technique. Moderate to large amount of diffuse ascites is present with attenuation slightly higher than expected of simple fluid. Further evaluation of the abdomen shows no significant change of the remaining solid organs. Hollow viscus organs demonstrate normal course and caliber. Vascular structures are grossly intact with unchanged 3.8 cm infrarenal abdominal aortic aneurysm. There is no free intraperitoneal air. There is a tiny left pleural effusion. There is no dense consolidation. There is cardiomegaly without pericardial effusion. The osseous structures are within normal limits for age. Impression: 1. No evidence of GI bleed within the limits of this exam. 2. Unchanged morphology and differential for the appearance of the liver and mesentery. 3. Moderate to large volume ascites with attenuation slightly higher than simple fluid. Dictated By: 10/22/181926 PIPE GONZALEZ MD. Signed By: 10/22/181944 PIPE GONZALEZ MD. Patient Problems - Patient Problem List (1) Adenocarcinoma of colon metastatic to liver Current Visit: Yes Status: Acute Code(s): C18.9 - Malignant neoplasm of colon, unspecified; C78.7 - Secondary malignant neoplasm of liver and intrahepatic bile duct Category: Medical (2) Ascites Current Visit: Yes Status: Acute Code(s): R18.8 - Other ascites Qualifiers: Ascites type: malignant Qualified Code(s): R18.0 - Malignant ascites Category: Medical (3) Nausea and vomiting Current Visit: Yes Status: Acute Code(s): R11.2 - Nausea with vomiting, unspecified Qualifiers: Vomiting type: cyclical vomiting Vomiting Intractability: intractable Qualified Code(s): G43.A1 - Cyclical vomiting, intractable Category: Medical (4) Abdominal pain Current Visit: Yes Status: Acute Code(s): R10.9 - Unspecified abdominal pain Category: Medical (5) Chronic systolic heart failure Current Visit: No Status: Acute Code(s): I50.22 - Chronic systolic (congestive) heart failure Category: Medical (6) Poorly controlled type 2 diabetes mellitus Current Visit: Yes Status: Acute Code(s): E11.65 - Type 2 diabetes mellitus with hyperglycemia Category: Medical (7) Tobacco abuse Current Visit: Yes Status: Acute Code(s): Z72.0 - Tobacco use Category: Medical (8) Hypertension Current Visit: Yes Status: Chronic Code(s): I10 - Essential (primary) hypertension Qualifiers: Hypertension type: essential hypertension Qualified Code(s): I10 - Essential (primary) hypertension Category: Medical (9) Coronary artery disease Current Visit: Yes Status: Chronic Code(s): I25.10 - Atherosclerotic heart disease of [place] coronary artery without angina pectoris Qualifiers: Coronary Disease-Associated Artery/Lesion type: [place] artery [place] vs. transplanted heart: [place] heart Associated angina: without angina Qualified Code(s): I25.10 - Atherosclerotic heart disease of [place] coronary artery without angina pectoris Category: Medical
[2018-10-25] MEDS: Sodium Chloride 0.9% 1,000 ML PRIMARY IV SCH (22:33)
== END 2018-10-25 21:50 | disposition expired | DRG 375 ==
LOC: ER 16:23 → MED/SURG 21:26
PROVIDERS: ADMIT Family Medicine; ATTEND Family Medicine